=== PATIENT | male | born 1955 | race Caucasian/White ===

== ENCOUNTER 2020-06-11 10:13 | Outpatient (REF) | payer MEDICARE, MEDICAID, SELFPAY ==
--- NOTE | ~2020-06-11 | XR_ITS ---
EXAMINATION: XR RIGHT SHOULDER AND CERVICAL SPINE CLINICAL INFORMATION: Neck pain and right shoulder pain. COMPARISON: None. TECHNIQUE: 3 views right shoulder and 5 view cervical spine. FINDINGS: Right Shoulder: There is loss of glenohumeral joint space with moderate inferior glenohumeral joint periapical spurring. No loose body seen. There is decrease in AC joint space with no bony erosive changes. The soft tissues are normal. Cervical Spine: There is mild straightening of cervical lordosis. The vertebral heights and alignment is normal. There is loss of C4-C5, C5-C6 disc heights with ventral and posterior spondylosis. There is bilateral narrowing of the neural foramina at C5-C6 and C6-C7 disc levels on the right from uncovertebral hypertrophic changes. No lytic or sclerotic process seen. The prevertebral soft tissues are normal. XR/XR shoulder RT min 2V IMPRESSION: Degenerative changes with moderate inferior glenohumeral joint spurring. Disc changes C4-C5, C5-C6 disc levels with moderate ventral and posterior spondylosis. Narrowing of neural foramina as described above from uncovertebral hypertrophic changes.
--- NOTE | ~2020-06-11 | XR_ITS ---
EXAMINATION: XR RIGHT SHOULDER AND CERVICAL SPINE CLINICAL INFORMATION: Neck pain and right shoulder pain. COMPARISON: None. TECHNIQUE: 3 views right shoulder and 5 view cervical spine. FINDINGS: Right Shoulder: There is loss of glenohumeral joint space with moderate inferior glenohumeral joint periapical spurring. No loose body seen. There is decrease in AC joint space with no bony erosive changes. The soft tissues are normal. Cervical Spine: There is mild straightening of cervical lordosis. The vertebral heights and alignment is normal. There is loss of C4-C5, C5-C6 disc heights with ventral and posterior spondylosis. There is bilateral narrowing of the neural foramina at C5-C6 and C6-C7 disc levels on the right from uncovertebral hypertrophic changes. No lytic or sclerotic process seen. The prevertebral soft tissues are normal. XR/XR cervical spine 4V IMPRESSION: Degenerative changes with moderate inferior glenohumeral joint spurring. Disc changes C4-C5, C5-C6 disc levels with moderate ventral and posterior spondylosis. Narrowing of neural foramina as described above from uncovertebral hypertrophic changes.
== END 2020-06-11 10:14 | disposition home or self-care (01) ==
LOC: HO.HMGCX 10:13
PROVIDERS: PCP Nurse Practitioner; Visit Provider Nurse Practitioner
DX: M25.511 Pain in right shoulder (principal); M54.2 Cervicalgia
CPT/HCPCS: 72050; 73030

== ENCOUNTER 2021-04-30 12:40 | Outpatient (REF) | payer MEDICARE, MEDICAID, SELFPAY ==
--- NOTE | ~2021-04-30 | MR_ITS ---
EXAMINATION: MR SHOULDER WITHOUT CONTRAST, RIGHT CLINICAL INFORMATION: Chronic pain. Weakness. Arthritis. COMPARISON: None TECHNIQUE: MRI of the shoulder without contrast was performed on a high-field scanner. Examination is slightly limited by motion artifact on most sequences. FINDINGS: ROTATOR CUFF: Mild supraspinatus tendinosis with subtle undersurface fraying. No discrete supraspinatus tendon tear. There is a small 6 x 4 mm insertional partial tear of the subscapularis tendon at the lesser tuberosity with mild associated tendinosis. There is mild atrophy and grade 2 fatty replacement of the teres minor. Rotator cuff musculature is otherwise unremarkable. No abnormalities are identified in the axillary pouch. BICEPS: Normal. CORACOACROMIAL ARCH: The undersurface of the acromion is curved with no subacromial spur. Mild acromioclavicular osteoarthritis. No subacromial-subdeltoid bursitis. LABRUM/CAPSULE: The glenoid labrum is diffusely degenerated, more pronounced superiorly and posteriorly. Axillary pouch is unremarkable. GLENOHUMERAL JOINT/MARROW: Severe nonuniform articular cartilage loss is present at both the glenoid and humeral head, associated with articular sclerosis and remodeling, prominent marginal osteophytes, and subchondral edema. Cartilage loss and articular remodeling are more notable at the posterior aspect of the glenoid. Subcortical cystic changes present at the greater tuberosity posteriorly. Gzolg-rr-rqgyhhhw-sized joint effusion. MR/MR shoulder RT wo con IMPRESSION: 1. Severe glenohumeral osteoarthritis. 2. Small 6 x 4 mm insertional partial tear of the subscapularis tendon with mild associated tendinosis. Mild supraspinatus tendinosis. No additional rotator cuff tears. 3. Mild acromioclavicular osteoarthritis.
== END 2021-04-30 12:41 | disposition home or self-care (01) ==
LOC: HO.MRI 12:40
PROVIDERS: Visit Provider Nurse Practitioner Primary Care
DX: M25.511 Pain in right shoulder (principal)
CPT/HCPCS: 73221

== ENCOUNTER 2022-01-10 11:45 | Outpatient (REF) | payer MEDICARE, MEDICAID, SELFPAY ==
--- NOTE | 2022-01-10 15:03 | MHC.AU.ANO ---
Adult Audiological Evaluation Date of Visit: 01/10/22 Polysomnography Tech Used: Not Applicable Reason for Appointment: Audiologic evaluation due to history of hearing loss, right ear great than left since childhood following trauma to the right ear. Mkiey also reports he intermittently experiences an echo/hollow sensation of the right ear. Hearing Handicap Inventory: HHIE SCORE: 20 Based on HHIE score, patient has: Mild to moderate perceived hearing handicap Ear History: Bothersome Tinnitus/Ringing/Noises in Ears: Right Ear Ear used on the phone: Right Ear Blocked/Full Sensation in Ear(s): Right Ear History of occupational noise exposure?: Yes History: Yes Medical History: Medical History: High Blood Pressure, Stroke, Vascular Problems Medical History: High Cholesterol and mild cognitive impairment. Medication List: Tadalafil, Finastreride, Tamsulosin, Lisinopril, Atorvastatin, Amlodipine, Aspirin, Cyclobenzaprine, Folin Acid, Citalopram, Hydroxyzine, Bupropion Otoscopy: Right Ear: Small amount of non-occluding cerumen Left Ear: Unremarkable Tympanometry: Tympanometry performed due to: To assess integrity of the middle ear system Right Ear: Normal Middle Ear System (Type A) Left Ear: Normal Middle Ear System (Type A) Otoacoustic Emissions Frequency Range Used: 1.6-8 kHz Right Ear Results: Present 1600 and 2000 Hz. Absent 1724-4740 Hz Analysis: Present emissions suggest normal cochlear function Rules out peripheral hearing loss greater than a mild degree Reduced/Absent emissions suggest cochlear dysfunction Results are consistent with degree and configuration of hearing loss Left Ear Results: Present 5287-2800 Hz Absent 3087-2381 Hz Analysis: Present emissions suggest normal cochlear function Rules out peripheral hearing loss greater than a mild degree Reduced/Absent emissions suggest cochlear dysfunction Results are consistent with degree and configuration of hearing loss Hearing Evaluation: Transducer(s) Used: Insert Earphones Bone Conduction Method: Conventional Audiometry Stimuli Used: Pure Tones Right Ear: Description of Hearing: Normal hearing thresholds 250-2000 Hz, dropping to a severe high frequency sensorineural hearing loss Left Ear: Description of Hearing: Normal hearing thresholds 250-2000 Hz, dropping to a moderate high frequency sensorineural hearing loss Speech Recognition Threshold (SRT): Method Used: Monitored Live Voice Stimuli Used: Spondee Words Right Ear: 15 dB HL Left Ear: 15 dB HL Word Discrimination: Method: Recorded Lists Word Lists Used: NU-6 Right Ear: 100% at 60 dB HL Left Ear: 100% at 60 dB HL Interpretation of Results: Results indicate an asymmetric high frequency hearing loss, right ear greater than left. With this hearing loss, Mikey is able to hear because of the normal low frequencies, but has difficulty understanding speech, particularly when background noise is present or a person is talking from a distance. Recommendations: Referral to Ear, Nose, and Throat is recommended for further work-up of the asymmetric hearing loss. Trial with amplification is recommended. Medical clearance from a physician is required before fitting. If Mikey is interested in pursuing hearing aids, he may schedule a Hearing Aid Evaluation at this office if medically cleared by the ENT. Audiological re-evaluation in one year. Diagnosis: Primary Diagnosis: H90.3 Bilateral Sensorineural Hearing Loss Services Performed: Comprehensive Audiological Evaluation (CPT 10160) Diagnostic Otoacoustic Emissions (CPT 11130, 26+TC) Tympanometry (CPT 99463) Signature: Provider: Olga Lidia Landin, CCC-A
== END 2022-01-10 11:46 | disposition home or self-care (01) ==
LOC: HO.SH 11:45
PROVIDERS: Visit Provider Nurse Practitioner
DX: Z01.118 Encounter for examination of ears and hearing with other abnormal findings (principal); H90.3 Sensorineural hearing loss, bilateral
CPT/HCPCS: 92557; 92567; 92588

== ENCOUNTER 2023-01-13 14:21 | Outpatient (AMB) | payer MEDICARE, SELFPAY ==
--- NOTE | 2023-01-13 14:40 | A.OFFPC_ITS ---
Vital Signs 01/13/23 14:41 Height 5 ft 6.14 in Weight 159 lb 2 oz BMI 25.6 BP 118/62 Blood Pressure Location Lt brachial Position Sitting Pulse 82 Pulse Source Pulse Oximeter Pulse Oximetry (%) 98 Oxygen Delivery Method Room Air Intake Visit Reasons: New patient Intake Note: Patient is a new patient here to establish care. Transferring care from [facility]. Medical records have been requested today. Pt will need medication refills. Profile Grinder Technician Required: No Accompanied by: step daughter-Caitie Allergies Penicillins Allergy (Severe, Verified 01/13/23 15:15) Hives Medication List - Last Reconciled 01/13/23 by Santy Fernandez PA-C amlodipine 2.5 mg PO DAILY atorvastatin 80 mg PO DAILY bupropion HCl 300 mg PO DAILY citalopram 40 mg PO DAILY cyclobenzaprine 10 mg PO TID PRN finasteride 5 mg PO DAILY folic acid 1 mg PO QAM hydroxyzine HCl 25 mg PO TID PRN lisinopril 10 mg PO DAILY tamsulosin 0.4 mg PO DAILY Tobacco use date assessed: 01/13/23 Fall risk assessment: 1 Fall in past year Last assessed Fall Risk: 01/13/23 Dental Screening Dental Screen Date: 01/13/23 Did you have a dental visit in the last 12 months?: No Did you have a dental problem in the last 6 months where you did not have access to dental care?: No Was dental information given to patient?: Yes HPI New patient HPI Details Patient is a 67-year-old male here today for new patient visit. Previous PCP was at the [facility]. Patient has a past medical history significant for hyperlipidemia, hypertension, anxiety depression, BPH, CVA ( 2012), PAD. Concern--> reports having history of a testicular cystic mass that was removed by urologist many years ago. He reports the mass has reoccurred and would like to see urologist again here in [place]. .. CVA: Had a stroke in 2012, has been on high potency statin and aspirin since. Has neurology follow-up with this time. Does not have any more in deficits besides his memory issues. .. Hypertension: Patient's blood pressure acceptable today in office. Continues on amlodipine 2.5 mg and lisinopril 10 mg which has been effective for his blood pressure management. .. Alcohol use disorder: He does understand somewhat that he drinks excessively. He has report having 5-6 beers per day. .. Anxiety/ anger issue: He continues with use of bupropion and citalopram and as needed hydroxyzine for anxiety and agitation. Does not speak with a mental health therapist or psychiatrist at this time. . .. PAD: followed by vascular speacialist [facility] for carotid stenosis. .. colon cancer screening : Was recently doing a Cologuard, will await records [facility] Medical History Muscle spasm Social History (Updated 01/13/23 @ 15:33 by Santy Fernandez PA-C) Housing: House Alcohol intake: current Alcohol intake frequency: 3 or more drinks per day Alcohol type: beer Patient Tobacco Use Status: Former Tobacco user Quit Date: 2012 Tobacco use type: Cigarette e-Cigarette/Vaping Use: Currently Using Substance Use Type: Marijuana service: No Current occupational status: retired and disabled Cognitive needs: No Hearing needs: Yes (right ear issue. Pt saw hearing evaluation already. ) Vision needs: No Questionnaire PHQ-9 Over the last 2 weeks, how often have you been bothered by any of the following problems? 1. Little interest or pleasure in doing things: more than half the days 2. Feeling down, depressed, or hopeless: nearly every day 3. Trouble falling or staying asleep, or sleeping too much: nearly every day 4. Feeling tired or having little energy: nearly every day 5. Poor appetite or overeating: nearly every day 6. Feeling bad about yourself - or that you are a failure or have let yourself or your family down: nearly every day 7. Trouble concentrating on things, such as reading the newspaper or watching television: nearly every day 8. Moving or speaking so slowly that other people could have noticed. Or the opposite - being so fidgety or restless that you have been moving around a lot more than usual: nearly every day 9. Thoughts that you would be better off or of hurting yourself in some way: nearly every day Total score: 26 Depression Screening Interpretation: Positive 67087 - PHQ-9 Billing: Yes Source: Developed by Drs. Devin Shah, Daquan Zamora and colleagues, with an educational sander from [employer]. Thrive Questionnaire Date Thrive assessed: 01/13/23 I am a: Patient What is your living situation today?: I have a steady place to live Within the past 12 months, did the food you bought not last and you didn't have the money to get more?: Never true Within the past 12 months, did you worry whether your food would run out before you got money to buy more?: Never true Do you have trouble paying for medicines?: No Do you have trouble getting transportation to medical appointments?: No Do you have trouble paying your heating and electricity bill?: No Do you have trouble taking care of your child, family member or friend?: No Do you have trouble with day-to-day activities such as bathing, preparing meals, shopping, managing finances, etc.?: No Are you currently unemployed and looking for a job?: No Are you interested in more education?: No Please select the resources that you would like help with: None Currently or been in a relationship where the following occur: no concerns reported AUDIT C Alcohol Use Questionnaire (AUDIT-C) 1. How often do you have a drink containing alcohol?: 4 or more times a week 2. How many drinks containing alcohol do you have on a typical day when you are drinking?: 5 or 6 3. How often do you have six or more drinks on one occasion?: Daily or almost daily Total Score: 10 SANGITA-7 AMB Questionnaire SANGITA-7 Date SANGITA - 7 assessed: 01/13/23 Feeling nervous, anxious, or on edge: 3 = Nearly every day Not being able to stop or control worryin = Nearly every day Worrying too much about different things: 3 = Nearly every day Trouble relaxin = Nearly every day Being so restless that it is hard to sit still: 3 = Nearly every day Becoming easily annoyed or irritable: 3 = Nearly every day Feeling afraid as if something awful might happen: 3 = Nearly every day Total SANGITA-7 score (0-4 normal; 5-9 mild; 10-14 moderate; 15-21 severe): 21 Source: Developed by Drs. Devin Shah, Daquan Zamora and colleagues, with an educational sander from [employer]. SANGITA-7 Assessment Billing SANGITA-7 Assessment Tool: SANGITA-7 Assessment 15730 Review of Systems Const Denies headache(s) Eyes Denies loss of vision ENT Denies vertigo, Denies dizziness, Denies headache(s) and Denies sore throat Card Denies chest pain, Denies leg edema and Denies lightheadedness Resp Denies cough, Denies hemoptysis and Denies wheezing GI Denies abdominal pain, Denies melena, Denies constipation, Denies diarrhea and Denies vomiting Denies dysuria, Denies urinary frequency and Denies urinary urgency Musc Denies arthralgias, Denies joint swelling, Denies numbness and Denies tingling Neuro Denies Abnormal speech present, Denies behavioral changes, Denies vertigo, Denies dizziness, Denies headache(s), Denies loss of vision, Denies memory loss, Denies numbness and Denies tingling Psych Denies anxiety, Denies behavioral changes, Denies depression, Denies memory loss and Denies panic attacks Guille/Lymph Denies easy bleeding and Denies easy bruising Aller/Immun Denies wheezing Physical exam (Primary Care) Vital Signs: Last Vital Signs Pulse 82 01/13/23 14:41 BP 118/62 01/13/23 14:41 Pulse Ox 98 01/13/23 14:41 Oxygen Delivery Method Room Air 01/13/23 14:41 BMI result Body Mass Index 25.6 Tobacco/Smoking Status: Tobacco use Status Tobacco use date assessed 01/13/23 01/13/23 15:00 Patient Tobacco Use Status Former Tobacco user 01/13/23 15:33 Tobacco use type Cigarette 01/13/23 15:33 e-Cigarette/Vaping Use Currently Using 01/13/23 15:33 PHQ-9: PHQ-9 Score PHQ-9: Total score 26 01/14/23 07:26 Depression Screening Interpretation: Positive Thrive Assessment: Date of Thrive Assessment Date Thrive assessed 01/13/23 01/13/23 15:00 Currently or been in a relationship where the following occur: no concerns reported Const General: healthy appearing, no acute distress, alert and awake Nutritional Appearance: well nourished Orientation/consciousness: oriented to person, oriented to place and oriented to time HENMT Ears: TM's normal bilaterally General nose exam: Normal nasal mucous membranes and turbinates present Eyes Conjunctivae: conjunctivae normal Sclerae: sclerae normal Pupils: Equal, round and reactive pupils present Neck Neck: Yes no lymphadenopathy and Yes no JVD Thyroid: Thyroid normal Carotids: no bruits Resp Effort & Inspection: normal respiratory effort and not tachypneic Auscultation: no crackles, no rales, no rhonchi and no wheezes Cardio Rate: regular rate Rhythm: regular rhythm Heart sounds: no murmurs and normal S1 and S2 GI Palpation (GI): Soft to palpation, nontender, no hepatomegaly and no splenomegaly Auscultation: normal bowel sounds Skin General skin exam: no rashes or lesions noted and dry skin Neuro General: oriented to person, oriented to place and oriented to time Cranial nerves: Yes Equal, round and reactive pupils present Speech: No Abnormal speech present Gait exam (Neuro): Normal gait present Motor exam (neuro): no tremor noted Extrem Other: RIGHT SHOULDER: SOME DECREASED ACTIVE RANGE OF MOTION. UNABLE TO COMPLETELY RAISE RIGHT UPPER EXTREMITY ABOVE HEAD. Left upper extremity: full ROM Right lower extremity: full ROM; no edema Left lower extremity: full ROM; no edema Psych Mental Status: mental status grossly normal Speech and movement: Normal speech and movement present Affect: normal affect Attitude: cooperative Thought process: Normal thought process present Assessment and Plan Assessment & Plan (1) CVA (cerebral vascular accident): Comment: Stroke in 2013 Code(s): I63.9 - Cerebral infarction, unspecified Qualifiers: CVA mechanism: embolism Precerebral and cerebral artery: unspecified precerebral artery Qualified Code(s): I63.10 - Cerebral infarction due to embolism of unspecified precerebral artery Plan: Continue to reduce risk factors for recurrent stroke. Advised on continuing 81 mg aspirin. (2) HTN (hypertension): Code(s): I10 - Essential (primary) hypertension Qualifiers: Hypertension type: primary hypertension Qualified Code(s): I10 - Essential (primary) hypertension Plan: Blood pressure today acceptable. Will continue his antihypertensive medication with goal blood pressure to remain below 140/90 (3) BPH (benign prostatic hyperplasia): Code(s): N40.0 - Benign prostatic hyperplasia without lower urinary tract symptoms Qualifiers: Lower urinary tract symptom presence: symptoms absent Qualified Code(s) : N40.0 - Benign prostatic hyperplasia without lower urinary tract symptoms (4) Testicular cyst: Code(s): N44.2 - Benign cyst of testis Plan: Has had history of a testicular mass that was removed by urologist years ago. He would like to reestablish care here at [place] [facility] has he reports this testicular mass has reoccurred. (5) Right shoulder tendonitis: Code(s): M77.8 - Other enthesopathies, not elsewhere classified Plan: In 2020 patient did suffer a fall injuring his right shoulder. At the time MRI was done showing a partial tear of his supraspinatus tendon. He continues to have pain and does use gsny-idv-[id number] analgesics and cyclobenzaprine without much relief. Offered physical therapy and orthopedic referral for possible cortisone injection though patient would like to hold off on now. (6) Alcohol use disorder: Code(s): F10.90 - Alcohol use, unspecified, uncomplicated Plan: Unclear patient understands the amount beer he drinks per day is a bit excessive. Advised to cut down his drinking. Does report 5-6 beers per day. Will check his liver enzymes. (7) Right SNHL: Code(s): H90.5 - Unspecified sensorineural hearing loss Qualifiers: Contralateral hearing status: restricted hearing on contralateral side Qualified Code(s): H90.A21 - Sensorineural hearing loss, unilateral, right ear, with restricted hearing on the contralateral side Plan: Does report having right ear decreased hearing, was sent for audiological testing in January 2022 which did show decreased right sided sensor in her hearing loss. Patient was in the and did have exposure to loud noises Will refer to ENT for evaluation. (8) SANGITA (generalized anxiety disorder): Code(s): F41.1 - Generalized anxiety disorder Plan: Continues with mental health medications which have been helpful to reduce his anxiety. Orders: Orders Microalbumin, Random (w Creat) 01/13/23 I10 - Essential (primary) hypertension Comprehensive Termo. Panel Fast 01/13/23 I63.10 - Cerebral infarction due to embolism of unspecified precerebral artery Lipid Panel 01/13/23 I63.10 - Cerebral infarction due to embolism of unspecified precerebral artery Prostate Specific Antigen Scr 01/13/23 I63.10 - Cerebral infarction due to embolism of unspecified precerebral artery, Z12.5 - Encounter for screening for malignant neoplasm of prostate Referrals Urology Referral N44.2 - Benign cyst of testis Ear/Nose/Throat Referral H90.A21 - Sensorineural hearing loss, unilateral, right ear, with restricted hearing on the contralateral side Medications: New lisinopril 10 mg PO DAILY 90 days 90 tabs 1RF I10 - Essential (primary) hypertension bupropion HCl 300 mg PO DAILY 90 days 90 tabs 1RF F41.1 - Generalized anxiety disorder tamsulosin 0.4 mg PO DAILY 90 days 90 caps 1RF N40.0 - Benign prostatic hyperplasia without lower urinary tract symptoms folic acid 1 mg PO QAM 90 days 90 tabs 1RF I63.10 - Cerebral infarction due to embolism of unspecified precerebral artery amlodipine 2.5 mg PO DAILY 90 days 90 tabs 1RF I10 - Essential (primary) hypertension atorvastatin 80 mg PO DAILY 90 days 90 tabs 1RF I63.10 - Cerebral infarction due to embolism of unspecified precerebral artery citalopram 40 mg PO DAILY 90 days 90 tabs 1RF F41.1 - Generalized anxiety disorder finasteride 5 mg PO DAILY 90 days 90 tabs 1RF N40.0 - Benign prostatic hyperplasia without lower urinary tract symptoms aspirin (Adult Aspirin Regimen) 81 mg PO DAILY 90 days 90 tabs 1RF I63.10 - Cerebral infarction due to embolism of unspecified precerebral artery Coding Level of Care Code New Pt Level 4 (58190) Diagnoses Cerebrovascular accident (CVA) due to embolism of precerebral artery I63.10 CVA mechanism: embolism Precerebral and cerebral artery: unspecified precerebral artery Primary hypertension I10 Hypertension type: primary hypertension Benign prostatic hyperplasia without lower urinary tract symptoms N40.0 Lower urinary tract symptom presence: symptoms absent Testicular cyst N44.2 Right shoulder tendonitis M77.8 Alcohol use disorder F10.90 Sensorineural hearing loss (SNHL) of right ear with restricted hearing of left ear H90.A21 Contralateral hearing status: restricted hearing on contralateral side SANGITA (generalized anxiety disorder) F41.1 Additional Codes SANGITA-7 Assessment Billing - SANGITA-7 Assessment Tool: SANGITA-7 Assessment 68413 ([id number])
[2023-01-13 14:41] VITALS: BP 118/62; PULSE 82; O2SAT 98; BMI 25.6
== END 2023-01-13 15:51 | disposition home or self-care (01) ==
PROVIDERS: Visit Provider Physician Assistant
DX: I63.10 Cerebral infarction due to embolism of unspecified precerebral artery (principal); I10 Essential (primary) hypertension; N40.0 Benign prostatic hyperplasia without lower urinary tract symptoms; N44.2 Benign cyst of testis; M77.8 Other enthesopathies, not elsewhere classified; F10.90 Alcohol use, unspecified, uncomplicated; H90.A21 Sensorineural hearing loss, unilateral, right ear, with restricted hearing on the contralateral side; F41.1 Generalized anxiety disorder
CPT/HCPCS: 99204

== ENCOUNTER 2023-02-02 09:58 | Outpatient (REF) | payer MEDICARE, SELFPAY ==
[2023-02-02 13:56] LABS: Alanine Aminotransferase 14 U/L (0-40); Albumin Level 4.2 g/dL (3.5-5.0); Alkaline Phosphatase 48 U/L (39-117); Anion Gap 15 (12-20); Aspartate Amino Transferase 18 U/L (5-37); Bilirubin Total 0.7 mg/dL (0.0-1.0); Blood Urea Nitrogen 17 mg/dL (9-16); Calcium 9.8 mg/dL (8.4-10.2); Carbon Dioxide 26 mmol/L (22-29); Chloride 106 mmol/L (96-108); Cholesterol 175 mg/dL (<200); Estimated Glomerular Filt Rate 53; Glucose Fasting 93 mg/dL (60-99); HDL Cholesterol 60 mg/dL (>40); LDL Cholesterol Calculated 103 mg/dL (<100); Potassium 4.8 mmol/L (3.3-5.1); Sodium 142 mmol/L (135-145); Total Protein 6.9 g/dL (6.5-8.0); Triglycerides 62 mg/dL (<150)
[2023-02-02 14:13] LABS: Prostate Specific Antigen Scr 0.46 ng/mL (<0.05-4.0)
[2023-02-02 14:17] LABS: Creatinine Urine 216.37 mg/dL; Microalbum/Creatinine Ratio Ur 3.6 ug/mg cr (<30)
== END 2023-02-02 09:59 | disposition home or self-care (01) ==
LOC: HO.HMGCLDS 09:58
PROVIDERS: PCP Physician Assistant; Visit Provider Physician Assistant
DX: I63.10 Cerebral infarction due to embolism of unspecified precerebral artery (principal); I10 Essential (primary) hypertension; Z12.5 Encounter for screening for malignant neoplasm of prostate
CPT/HCPCS: 36415; 80053; 80061; 82043; 82570; 84153

== ENCOUNTER 2023-03-25 14:17 | Outpatient (AMB) | payer MEDICARE, SELFPAY ==
--- NOTE | 2023-03-25 14:56 | MHC.OFFVIS ---
Intake Intake Visit Reasons: Benign cyst of testis Intake Note: New patient is present for Begign Cyst of Testis/BPH Antibiotic Allergy: Penicillins Meds: Finasteride, Tamsulosin Blood Thinner: Aspirin PVR: 0ml history of a testicular cystic mass that was removed by urologist many years ago. Patient is concerned that its back. Allergies Penicillins Allergy (Severe, Verified 03/25/23 14:58) Hives HPI HPI Comments History of Present Illness Details Mikey is a 67-year-old male who presents today to the office to establish as a new patient for an evaluation of BPH/benign cyst of testis. 03/25/2023-- 67-year-old with a past medical history significant for nicotine dependence, ethanol abuse, anxiety and history of stroke in 2013. He has been followed by other urology for BPH and he is on Proscar and Flomax. He states that he had a benign scrotal cyst removed many years ago by his previous urologist, and he feels that there is a recurrent and he is concerned about the cystic area. AUA symptom score was 11. I have reviewed the PSA results from 02/02/2023 revealed 0.46 ng/mL. Examination: Small cyst noted on left epididymis and also palpating what may be cystic structures on the right epididymis. Evaluation today?UA--Leukocytes: negative; blood: trace. Plan: US retroperitoneal was ordered. Scrotal US was ordered. Follow-up in 2 months. [facility] Medical History Muscle spasm Social History Housing: House Alcohol intake: current Alcohol intake frequency: 3 or more drinks per day Alcohol type: beer Patient Tobacco Use Status: Former Tobacco user Quit Date: 2012 Tobacco use type: Cigarette e-Cigarette/Vaping Use: Currently Using Substance Use Type: Marijuana service: No Current occupational status: retired and disabled Cognitive needs: No Hearing needs: Yes (right ear issue. Pt saw hearing evaluation already. ) Vision needs: No Questionnaire AUA Symptom Score AUA Incomplete emptying - It does not feel like I empty my bladder all the way.: 0 - Not at all Frequency - I have to go again less than two hours after I finish urinating.: 3 - About half the time Intermittency - I stop and start again several times when I urinate.: 0 - Not at all Urgency - It is hard to wait when I have to urinate.: 3 - About half the time Weak stream - I have a weak urinary stream.: 2 - Less than half the time Straining - I have to push or strain to begin urination.: 0 - Not at all Nocturia - I get up to urinate after I go to bed until the time I get up in the morning.: 3 times AUA Symptom Score: 11 Quality of life due to urinary symptoms: If you were to spend the rest of your life with your urinary condition the way it is now, how would you feel about that?: Mostly Satisfied Source: Erik BOWIE, Anjana MADERA Jr, O'Raymond MP, et al, and the Measurement Committee of the [place] [employer]. The [place] [employer] symptom index for benign prostatic hyperplasia. J Urol. 1992; 148: 8565-5271. Copyright 1992 [place] [employer] Review of Systems Const All systems reviewed & are unremarkable except as noted in HPI and below Reports no additional complaints Eyes Reports no additional complaints ENT Reports no additional complaints Card Denies dyspnea Resp Denies cough and Denies dyspnea GI Reports no additional complaints Musc Reports no additional complaints Skin/Breast Denies rash and Denies unusual bruising Neuro Reports no additional complaints Psych Reports no additional complaints Endo Reports no additional complaints Guille/Lymph Reports no additional complaints Aller/Immun Reports no additional complaints Physical Exam Const General: healthy appearing, no acute distress and well developed Orientation/consciousness: patient oriented x3 HEENT Head: Yes normocephalic and Yes atraumatic Eyes Conjunctivae: conjunctivae normal Neck Neck: Yes normal visual inspection Chest Chest palpation & inspection: normal inspection of the chest Resp Effort & Inspection: normal respiratory effort Cardio Rate: regular rate GI Inspection: Yes normal to inspection Palpation (GI): Soft to palpation Other: Examination: Small cyst noted on left epididymis and also palpating what may be cystic structures on the right epididymis. Penis: normal penis Skin General skin exam: no rashes or lesions noted Neuro General: patient oriented x3 Extrem General: No pedal edema Psych Appearance: grossly normal Affect: normal affect Office Procedures Post Void Residual Post Residual Void Post Void Residual (PVR): 0 62113-[id number] Void Residual by ultrasound Results AMB Urinalysis, Automated UA Leukoctes 0 Juancarlos/uL Last Edit by Swapna Melgoza, RMA on 03/25/23 15:11 UA Nitrite Negative Last Edit by Swapna Melgoza, RMA on 03/25/23 15:11 UA Urobilinogen 0.2 mg/dL Last Edit by Swapna Melgoza, RMA on 03/25/23 15:11 UA Protein 0 mg/dL Last Edit by Swapna Melgoza, RMA on 03/25/23 15:11 UA pH 6.0 Last Edit by Swapna Melgoza, RMA on 03/25/23 15:11 UA Blood 0 Grady/uL Last Edit by Sawpna Melgoza, RMA on 03/25/23 15:11 UA Specific [place] 1.020 Last Edit by Swapna Melgoza, RMA on 03/25/23 15:11 UA Ketone Negative Last Edit by Swapna Melgoza, RMA on 03/25/23 15:11 UA Bilirubin 0 mg/dL Last Edit by Swapna Melgoza, RMA on 03/25/23 15:11 UA Glucose 0 mg/dL Last Edit by Swapna Melgoza, RMA on 03/25/23 15:11 Results Reviewed Results Reviewed: Laboratory Last Values Urine pH (Auto) 6.0 03/25/23 15:09 Specific [place] (Auto) 1.020 03/25/23 15:09 Urine Protein (Auto) 0 mg/dL 03/25/23 15:09 Glucose (UA)(Auto) 0 mg/dL 03/25/23 15:09 Urine Ketones (Auto) Negative 03/25/23 15:09 Urine Blood (Auto) 0 Grady/uL 03/25/23 15:09 Urine Nitrite (Auto) Negative 03/25/23 15:09 Urine Bilirubin (Auto) 0 mg/dL 03/25/23 15:09 Urine Urobilinogen (Auto) 0.2 mg/dL 03/25/23 15:09 Leukocyte Esterase (Auto) 0 Juancarlos/uL 03/25/23 15:09 Assessment & Plan Assessment & Plan (1) BPH (benign prostatic hyperplasia): Code(s): N40.0 - Benign prostatic hyperplasia without lower urinary tract symptoms Qualifiers: Lower urinary tract symptom presence: symptoms absent Qualified Code(s): N40.0 - Benign prostatic hyperplasia without lower urinary tract symptoms (2) Urinary frequency: Code(s): R35.0 - Frequency of micturition (3) Epididymal cyst: Code(s): N50.3 - Cyst of epididymis Plan US retroperitoneal was ordered. Scrotal US was ordered. Follow-up in 2 months. Orders: Orders AMB Post Void Residual by ultrasound 03/25/23 N40.0 - Benign prostatic hyperplasia without lower urinary tract symptoms AMB Urinalysis Automated 03/25/23 Z13.9 - Encounter for screening, unspecified US retroperitoneal comp 03/25/23 N40.0 - Benign prostatic hyperplasia without lower urinary tract symptoms, R35.0 - Frequency of micturition US scrotum 03/25/23 N50.3 - Cyst of epididymis Patient Instructions: The patient had an opportunity to ask questions regarding treatment plan. All questions were answered. Imaging, Laboratory studies and physical exam results were discussed and reviewed in detail. No major barriers to understanding were identified. The patient expressed understanding and agreement with the above treatment plan. The patient is aware they should contact our office by phone for worsening of their current condition or the appearance of new symptoms. Compliance is encouraged with any medications and followup testing that is ordered. It is a privilege to be allowed the opportunity to participate in the urologic care of your patient. If you have any questions or concerns regarding treatment for the above conditions please do not hesitate to contact me. The office telephone contact is [phone]. This note is constructed in part using voice recognition software. While every effort has been made to ensure accuracy firebrick and refractory tile repairer errors may have been included. Yours sincerely, Fidencio Goodman MD Quality Reporting (2019) Benign Prostatic Hyperplasia ([facility] 771) AUA symptom score: 11 Quality of life due to urinary symptoms: If you were to spend the rest of your life with your urinary condition the way it is now, how would you feel about that?: Mostly Satisfied Coding Level of Care Code New Pt Level 4 (90702) Diagnoses Benign prostatic hyperplasia without lower urinary tract symptoms N40.0 Lower urinary tract symptom presence: symptoms absent Urinary frequency R35.0 Epididymal cyst N50.3 CPT Codes Post Residual Void - PVR CPT Code: 61145-Yvuj Void Residual by ultrasound ([id number])
== END 2023-03-25 15:31 | disposition home or self-care (01) ==
PROVIDERS: Visit Provider Urology
DX: N40.0 Benign prostatic hyperplasia without lower urinary tract symptoms (principal); R35.0 Frequency of micturition; N50.3 Cyst of epididymis
CPT/HCPCS: 99204

== ENCOUNTER → 2023-03-25 14:17 | Outpatient (BNVA) | payer OTHER, SELFPAY | PROVIDERS: Visit Provider Urology | DX: N40.0 Benign prostatic hyperplasia without lower urinary tract symptoms (principal); R35.0 Frequency of micturition; N50.3 Cyst of epididymis | CPT/HCPCS: 51798; 81003; 99202 ==

== ENCOUNTER 2023-05-18 14:26 | Outpatient (AMB) | payer MEDICARE, MEDICAID, SELFPAY ==
[2023-05-18 14:38] VITALS: BP 110/68; PULSE 70; O2SAT 97; BMI 25.6
--- NOTE | 2023-05-18 14:38 | A.OFFPC_ITS ---
Vital Signs 05/18/23 14:38 Height 5 ft 6.14 in Weight 159 lb 2 oz BMI 25.6 BP 110/68 Blood Pressure Location Lt brachial Position Sitting Pulse 70 Pulse Source Pulse Oximeter Pulse Oximetry (%) 97 Oxygen Delivery Method Room Air Intake Visit Reasons: Follow Up hypertension, CVA Brass Burnisher Required: No Accompanied by: Self / Same As Patient Allergies Penicillins Allergy (Severe, Verified 05/18/23 14:51) Hives Medication List - Last Reconciled 05/18/23 by Santy Fernandez PA-C amlodipine 2.5 mg PO DAILY 90 days aspirin (Adult Aspirin Regimen) 81 mg PO DAILY 90 days atorvastatin 80 mg PO DAILY 90 days bupropion HCl 300 mg PO DAILY 90 days citalopram 40 mg PO DAILY 90 days cyclobenzaprine 10 mg PO TID PRN finasteride 5 mg PO DAILY 90 days folic acid 1 mg PO QAM 90 days hydroxyzine HCl 25 mg PO TID PRN lisinopril 10 mg PO DAILY 90 days tamsulosin 0.4 mg PO DAILY 90 days Tobacco use date assessed: 05/18/23 Fall risk assessment: No Falls in past year Last assessed Fall Risk: 05/18/23 Dental Screening Dental Screen Date: 05/18/23 Did you have a dental visit in the last 12 months?: No Did you have a dental problem in the last 6 months where you did not have access to dental care?: No Was dental information given to patient?: Patient declined HPI Follow Up hypertension, CVA HPI Details Patient is a 67-year-old male here today for a follow-up visit. Patient has a past medical history significant for hyperlipidemia, hypertension, anxiety depression, BPH, CVA ( 2012), PAD. Concern--> continues to have right shoulder pain and limited range of motion. He reports a traumatic fall in 2020 landing on his right shoulder. He did do chiropractics and physical therapy at that time. MRI of right shoulder in 2020 showing--> . Severe glenohumeral osteoarthritis. 2. Small 6 x 4 mm insertional partial tear of the subscapularis tendon with mild associated tendinosis. Mild supraspinatus tendinosis. No additional rotator cuff tears. .. CVA: Had a stroke in 2012, has been on high potency statin and aspirin since. Has neurology follow-up with this time. Does not have any more in deficits besides his memory issues. .. Hypertension: Patient's blood pressure acceptable today in office. Continues on amlodipine 2.5 mg and lisinopril 10 mg which has been effective for his blood pressure management. .. Alcohol use disorder: He does understand somewhat that he drinks excessively. He has report having 5-6 beers per day. .. Anxiety/ anger issue: He continues with use of bupropion and citalopram and as needed hydroxyzine for anxiety and agitation. Does not speak with a mental health therapist or psychiatrist at this time. . .. PAD: followed by vascular speacialist [facility] for carotid stenosis. Laboratory Tests 02/02/23 10:08 Creatinine 1.36 Cholesterol 175 LDL Cholesterol, C alc 103 H [facility] Medical History Muscle spasm Social History Housing: House Alcohol intake: current Alcohol intake frequency: 3 or more drinks per day Alcohol type: beer Patient Tobacco Use Status: Former Tobacco user Quit Date: 2012 Tobacco use type: Cigarette e-Cigarette/Vaping Use: Currently Using Substance Use Type: Marijuana service: No Current occupational status: retired and disabled Cognitive needs: No Hearing needs: Yes (right ear issue. Pt saw hearing evaluation already. ) Vision needs: No Questionnaire PHQ-9 Over the last 2 weeks, how often have you been bothered by any of the following problems? 1. Little interest or pleasure in doing things: not at all 2. Feeling down, depressed, or hopeless: nearly every day 3. Trouble falling or staying asleep, or sleeping too much: nearly every day 4. Feeling tired or having little energy: nearly every day 5. Poor appetite or overeating: nearly every day 6. Feeling bad about yourself - or that you are a failure or have let yourself or your family down: nearly every day 7. Trouble concentrating on things, such as reading the newspaper or watching television: nearly every day 8. Moving or speaking so slowly that other people could have noticed. Or the opposite - being so fidgety or restless that you have been moving around a lot more than usual: nearly every day 9. Thoughts that you would be better off or of hurting yourself in some way: not at all Total score: 21 Depression Screening Interpretation: Positive Depression Screening Follow-up: Existing condition and Declines treatment Depression Screening Done: Yes 83664 - PHQ-9 Billing: Yes Source: Developed by Drs. Devin Shah, Katherin Goldman, Daquan Beyer and colleagues, with an educational sander from [employer]. Thrive Questionnaire Date Thrive assessed: 05/18/23 I am a: Patient What is your living situation today?: I have a steady place to live Within the past 12 months, did the food you bought not last and you didn't have the money to get more?: Never true Within the past 12 months, did you worry whether your food would run out before you got money to buy more?: Never true Do you have trouble paying for medicines?: No Do you have trouble getting transportation to medical appointments?: No Do you have trouble paying your heating and electricity bill?: No Do you have trouble taking care of your child, family member or friend?: No Do you have trouble with day-to-day activities such as bathing, preparing meals, shopping, managing finances, etc.?: No Are you currently unemployed and looking for a job?: No Are you interested in more education?: No Please select the resources that you would like help with: None AUDIT C Alcohol Use Questionnaire (AUDIT-C) 1. How often do you have a drink containing alcohol?: 4 or more times a week 2. How many drinks containing alcohol do you have on a typical day when you are drinking?: 10 or more 3. How often do you have six or more drinks on one occasion?: Daily or almost daily Total Score: 12 SANGITA-7 AMB Questionnaire SANGITA-7 Date SANGITA - 7 assessed: 05/18/23 Feeling nervous, anxious, or on edge: 3 = Nearly every day Not being able to stop or control worryin = Nearly every day Worrying too much about different things: 3 = Nearly every day Trouble relaxin = Nearly every day Being so restless that it is hard to sit still: 3 = Nearly every day Becoming easily annoyed or irritable: 3 = Nearly every day Feeling afraid as if something awful might happen: 3 = Nearly every day Total SANGITA-7 score (0-4 normal; 5-9 mild; 10-14 moderate; 15-21 severe): 21 Source: Developed by Drs. Devin Shah, Katherin Goldman, Daquan Beyer and colleagues, with an educational sander from [employer]. SANGITA-7 Assessment Billing SANGITA-7 Assessment Tool: SANGITA-7 Assessment 73226 Review of Systems Const Denies headache(s) Eyes Denies loss of vision ENT Denies vertigo, Denies dizziness, Denies headache(s) and Denies sore throat Card Denies chest pain, Denies leg edema and Denies lightheadedness Resp Denies cough, Denies hemoptysis and Denies wheezing GI Denies abdominal pain, Denies melena, Denies constipation, Denies diarrhea and Denies vomiting Denies dysuria, Denies urinary frequency and Denies urinary urgency Musc Denies arthralgias, Denies joint swelling, Denies numbness and Denies tingling Neuro Denies Abnormal speech present, Denies behavioral changes, Denies vertigo, Denies dizziness, Denies headache(s), Denies loss of vision, Denies memory loss, Denies numbness and Denies tingling Psych Denies anxiety, Denies behavioral changes, Denies depression, Denies memory loss and Denies panic attacks Guille/Lymph Denies easy bleeding and Denies easy bruising Aller/Immun Denies wheezing Physical exam (Primary Care) Vital Signs: Last Vital Signs Pulse 70 05/18/23 14:38 BP 110/68 05/18/23 14:38 Pulse Ox 97 05/18/23 14:38 Oxygen Delivery Method Room Air 05/18/23 14:38 BMI result Body Mass Index 25.6 Tobacco/Smoking Status: Tobacco use Status Tobacco use date assessed 05/18/23 05/18/23 14:48 Patient Tobacco Use Status Former Tobacco user 05/18/23 14:39 Tobacco use type Cigarette 05/18/23 14:39 e-Cigarette/Vaping Use Currently Using 05/18/23 14:39 PHQ-9: PHQ-9 Score PHQ-9: Total score 21 05/18/23 14:53 Depression Screening Interpretation: Positive Depression Screening Follow-up: Existing condition and Declines treatment Thrive Assessment: Date of Thrive Assessment Date Thrive assessed 01/15/24 01/15/24 14:48 Const General: healthy appearing, no acute distress, alert and awake Nutritional Appearance: well nourished Orientation/consciousness: oriented to person, oriented to place and oriented to time HENMT Ears: TM's normal bilaterally General nose exam: Normal nasal mucous membranes and turbinates present Eyes Conjunctivae: conjunctivae normal Sclerae: sclerae normal Pupils: Equal, round and reactive pupils present Neck Neck: Yes no lymphadenopathy and Yes no JVD Thyroid: Thyroid normal Carotids: no bruits Resp Effort & Inspection: normal respiratory effort and not tachypneic Auscultation: no crackles, no rales, no rhonchi and no wheezes Cardio Rate: regular rate Rhythm: regular rhythm Heart sounds: no murmurs and normal S1 and S2 GI Palpation (GI): Soft to palpation, nontender, no hepatomegaly and no splenomegaly Auscultation: normal bowel sounds Skin General skin exam: no rashes or lesions noted and dry skin Neuro General: oriented to person, oriented to place and oriented to time Cranial nerves: Yes Equal, round and reactive pupils present Speech: No Abnormal speech present Gait exam (Neuro): Normal gait present Motor exam (neuro): no tremor noted Extrem Other: RIGHT SHOULDER: NEGATIVE EMPTY CAN, NEGATIVE MORA TEST. HAS SOME LIMITED ABDUCTION AND INTERNAL ROTATIONAL RANGE OF MOTION Right upper extremity: full ROM Left upper extremity: full ROM Right lower extremity: full ROM; no edema Left lower extremity: full ROM; no edema Psych Mental Status: mental status grossly normal Speech and movement: Normal speech and movement present Affect: normal affect Attitude: cooperative Thought process: Normal thought process present Assessment and Plan Assessment & Plan (1) Right rotator cuff tear: Code(s): M75.101 - Unspecified rotator cuff tear or rupture of right shoulder, not specified as traumatic Qualifiers: Encounter type: subsequent encounter Rotator cuff tear extent: incomplete Rotator cuff tear trauma status: traumatic Qualified Code(s): S46.011D - Strain of muscle(s) and tendon(s) of the rotator cuff of right shoulder, subsequent encounter Plan: As per HPI, did a fall injuring his right shoulder in 2020. Has ever since had limited range of motion and intermittent pain with activity. MRI of right shoulder in 2020 showing-->. Severe glenohumeral osteoarthritis. 2. Small 6 x 4 mm insertional partial tear of the subscapularis tendon with mild associated tendinosis. Mild supraspinatus tendinosis. No additional rotator cuff tears At this point would likely benefit from orthopedic evaluation and perhaps cortisone injection. Will get repeat x-ray right shoulder (2) CVA (cerebral vascular accident): Comment: Stroke in 2013 Code(s): I63.9 - Cerebral infarction, unspecified Qualifiers: CVA mechanism: embolism Precerebral and cerebral artery: unspecified precerebral artery Qualified Code(s): I63.10 - Cerebral infarction due to embolism of unspecified precerebral artery Plan: Continue to reduce risk factors for recurrent stroke. Advised on continuing 81 mg aspirin. (3) HTN (hypertension): Code(s): I10 - Essential (primary) hypertension Qualifiers: Hypertension type: primary hypertension Qualified Code(s): I10 - Essential (primary) hypertension Plan: Blood pressure today acceptable. Will continue his antihypertensive medication with goal blood pressure to remain below 140/90 (4) BPH (benign prostatic hyperplasia): Code(s): N40.0 - Benign prostatic hyperplasia without lower urinary tract symptoms Qualifiers: Lower urinary tract symptom presence: symptoms absent Qualified Code(s): N40.0 - Benign prostatic hyperplasia without lower urinary tract symptoms Plan: Now followed by Urology. Has upcoming urinary ultrasound. (5) Alcohol use disorder: Code(s): F10.90 - Alcohol use, unspecified, uncomplicated Plan: Unclear patient understands the amount beer he drinks per day is a bit excessive. Advised to cut down his drinking. Does report 5-6 beers per day. . (6) SANGITA (generalized anxiety disorder): Code(s): F41.1 - Generalized anxiety disorder Plan: Patient's SANGITA-7 score positive for anxiety which has been existing condition for him.. Not interested in speaking with a mental therapist at this time. Continues with mental health medications which have been helpful to reduce his anxiety. (7) MDD (major depressive disorder), recurrent episode, moderate: Code(s): F33.1 - Major depressive disorder, recurrent, moderate Plan: Patient's PHQ-9 score positive for depression which has been existing condition for him. He continues on mental health medications that are helpful. Still has somewhat of an anger issue. He has not interested in cognitive behavioral therapy. Orders: Orders XR shoulder RT min 2V 05/18/23 S46.011D - Strain of muscle(s) and tendon(s) of the rotator cuff of right shoulder, subsequent encounter Prostate Specific Antigen Scr 05/18/23 N40.0 - Benign prostatic hyperplasia without lower urinary tract symptoms, Z12.5 - Encounter for screening for malignant neoplasm of prostate Lipid Panel 05/18/23 I63.10 - Cerebral infarction due to embolism of unspecified precerebral artery Microalbumin, Random (w Creat) 05/18/23 I10 - Essential (primary) hypertension Comprehensive Sullivan. Panel Fast 05/18/23 I10 - Essential (primary) hypertension Complete Blood Count no Diff 05/18/23 I10 - Essential (primary) hypertension Referrals Orthopedics Referral S46.011D - Strain of muscle(s) and tendon(s) of the rotator cuff of right shoulder, subsequent encounter Medications: New diclofenac sodium 75 mg PO BID 10 days PRN 20 tabs 0RF pain S46.011D - Strain of muscle(s) and tendon(s) of the rotator cuff of right shoulder, subsequent encounter Coding Level of Care Code Est Pt Level 4 (31249) Diagnoses Traumatic incomplete tear of right rotator cuff, subsequent encounter S46.011D Encounter type: subsequent encounter Rotator cuff tear extent: incomplete Rotator cuff tear trauma status: traumatic Cerebrovascular accident (CVA) due to embolism of precerebral artery I63.10 CVA mechanism: embolism Precerebral and cerebral artery: unspecified precerebral artery Primary hypertension I10 Hypertension type: primary hypertension Benign prostatic hyperplasia without lower urinary tract symptoms N40.0 Lower urinary tract symptom presence: symptoms absent Alcohol use disorder F10.90 SANGITA (generalized anxiety disorder) F41.1 MDD (major depressive disorder), recurrent episode, moderate F33.1 Additional Codes SANGITA-7 Assessment Billing - SANGITA-7 Assessment Tool: SANGITA-7 Assessment 58715 ([id number])
== END 2023-05-18 15:28 | disposition home or self-care (01) ==
PROVIDERS: Visit Provider Physician Assistant
DX: I69.811 Memory deficit following other cerebrovascular disease (principal); I10 Essential (primary) hypertension; S46.011D Strain of muscle(s) and tendon(s) of the rotator cuff of right shoulder, subsequent encounter; N40.0 Benign prostatic hyperplasia without lower urinary tract symptoms; F10.90 Alcohol use, unspecified, uncomplicated; F41.1 Generalized anxiety disorder
CPT/HCPCS: 99214

== ENCOUNTER 2023-05-19 09:03 | Outpatient (AMB) | payer MEDICARE, SELFPAY ==
[2023-05-19 09:12] VITALS: BMI 25.7
--- NOTE | 2023-05-19 09:12 | A.OFFVIS_ITS ---
Intake Vital Signs 05/19/23 09:12 Height 5 ft 6 in Weight 159 lb BMI 25.7 Intake Visit Reasons: [employer]- RT Rotator cuff strain/ tear Intake Note: Mikey is a 67 year old Right handed male who presents as a new patient with Right shoulder pain. Patient reports that he fell on the corner of a table about 3 years ago. Patient denies and numbness or tingling. MRI done here on 04/30/2021. The patient has done physical therapy exercises which aggravated his pain. He has not had a cortisone injection. Has tried extra-strength Tylenol which gives him minimal relief. He wishes to hold off on surgery if at all possible. Allergies Penicillins Allergy (Severe, Verified 05/19/23 09:19) Hives Medication List - Last Reconciled 05/19/23 by Betito Ponce MD amlodipine 2.5 mg PO DAILY 90 days aspirin (Adult Aspirin Regimen) 81 mg PO DAILY 90 days atorvastatin 80 mg PO DAILY 90 days bupropion HCl 300 mg PO DAILY 90 days citalopram 40 mg PO DAILY 90 days cyclobenzaprine 10 mg PO TID PRN diclofenac sodium 75 mg PO BID PRN 10 days finasteride 5 mg PO DAILY 90 days folic acid 1 mg PO QAM 90 days hydroxyzine HCl 25 mg PO TID PRN lisinopril 10 mg PO DAILY 90 days tamsulosin 0.4 mg PO DAILY 90 days [facility] Medical History Muscle spasm Social History Housing: House Alcohol intake: current Alcohol intake frequency: 3 or more drinks per day Alcohol type: beer Patient Tobacco Use Status: Former Tobacco user Quit Date: 2012 Tobacco use type: Cigarette e-Cigarette/Vaping Use: Currently Using Substance Use Type: Marijuana service: No Current occupational status: retired and disabled Cognitive needs: No Hearing needs: Yes (right ear issue. Pt saw hearing evaluation already. ) Vision needs: No Physical Exam Vital Signs: BMI result Body Mass Index 25.7 Const Other: Well-nourished well-developed very friendly male awake alert and oriented x3 in no acute distress Extrem Other: Bilateral upper extremity examination shows good capillary refill, no skin lesions noted, normal sensation light touch Right shoulder examination shows decreased range of motion when compared to his left shoulder, 4+ out of 5 strength with supraspinatus testing, positive impingement signs, tenderness over his acromioclavicular joint, no instability Office Procedures Joint Injection/Drain Joint Injection/Drain Primary Site: right shoulder Prep: site was prepped using aseptic technique Injected: 40 mg of, DepoMedrol and 1% plain lidocaine Procedure: The patient tolerated the procedure well Coding 39571 - Large joint Procedure code (CPT) selection complete Results Reviewed Results Reviewed: X-rays of the patient's right shoulder taken in 2020 show moderate glenohumeral joint degenerative changes, severe acromioclavicular joint narrowing, a type 2 acromion MRI of the patient's right shoulder taken in 2020 show moderate glenohumeral joint degenerative changes, signal change within the supraspinatus tendon most likely due to rotator cuff tendinosis versus a small tear, severe acromioclavicular joint narrowing, a type 2 acromion Assessment & Plan Assessment & Plan (1) Arthritis of right shoulder region: Code(s): M19.011 - Primary osteoarthritis, right shoulder Plan Mr. Terry presents with right shoulder pain and stiffness due to glenohumeral joint arthritis, impingement syndrome, adhesive capsulitis and rotator cuff tendinosis versus a small rotator cuff tear. I had a lengthy discussion with the patient regarding the treatment options. He wishes to hold off on surgery for as long as possible. I agree with this plan. The risks and benefits of a right shoulder cortisone injection were discussed at length with the patient. The patient wished to proceed. He tolerated the injection well. He will continue with his home stretching program to prevent stiffness. The patient will follow up with me on an as-needed basis should his symptoms not plateau at an unacceptable level over the next few months. Feel free to call me at any time should questions regarding his orthopedic management arise. I spent 22 minutes in reviewing the patient's records and imaging studies, seeing the patient and documenting in the medical record. Orders: Orders AMB Joint Injection/Aspiration Today M19.011 - Primary osteoarthritis, right shoulder Coding Level of Care Code New Pt Level 2 (90721) Diagnoses Arthritis of right shoulder region M19.011 CPT Codes Coding - Large joint: 30398 - Large joint ([id number])
== END 2023-05-19 09:51 | disposition home or self-care (01) ==
PROVIDERS: PCP Physician Assistant; Visit Provider Orthopaedic Surgery
DX: M19.011 Primary osteoarthritis, right shoulder (principal)
CPT/HCPCS: 20610; 99203

== ENCOUNTER → 2023-05-19 09:03 | Outpatient (BNVA) | payer MEDICARE, SELFPAY | PROVIDERS: PCP Physician Assistant; Visit Provider Orthopaedic Surgery | DX: M19.011 Primary osteoarthritis, right shoulder (principal) | CPT/HCPCS: 20610; 99202; J1020 ==

== ENCOUNTER 2023-05-20 12:28 | Outpatient (REF) | payer MEDICARE, SELFPAY ==
--- NOTE | ~2023-05-20 | US_ITS ---
EXAMINATION: US RETROPERITONEAL LIMITED (RENAL ONLY) CLINICAL INFORMATION: Benign prostatic hyperplasia without lower urinary tract symptoms. COMPARISON: None available. TECHNIQUE: Real-time imaging of the kidneys. FINDINGS: RIGHT KIDNEY: 8.3 x 5.4 x 4.9 cm (SAG x AP x TRV). The kidney is normal in size, contour, and echogenicity. Renal cortical thickness is normal. No renal calculi or hydronephrosis. At the interpolar aspect, a 7 mm benign, simple exophytic cyst is seen, for which no imaging follow-up is recommended. LEFT KIDNEY: 9.0 x 5.4 x 4.7 cm (SAG x AP x TRV). The kidney is normal in size, contour, and echogenicity. Renal cortical thickness is normal. No calculi or focal parenchymal lesions. No hydronephrosis. US/US retroperitoneal limited IMPRESSION: Unremarkable ultrasound appearance of the bilateral kidneys.
--- NOTE | ~2023-05-20 | US_ITS ---
EXAMINATION: US SCROTUM CLINICAL INFORMATION: Cyst of the epididymis. COMPARISON: None available. TECHNIQUE: A sonogram of the scrotum was performed assessing peter-scale appearance and color Doppler flow. Spectral Doppler analysis of the arterial and venous flow were performed in the testes bilaterally. FINDINGS: RIGHT: Right testicle measures 4.0 x 2.1 x 2.9 cm, volume 13.0 mL. No focal testicular parenchymal lesions are visualized. Spectral Doppler analysis of the arterial and venous flow is normal in the right testis. Right epididymal head is normal in size. Multiple epididymal cysts are seen, the largest measuring up to 1.5 cm. No right hydrocele or varicocele is seen. Right epididymal Doppler flow is normal. LEFT: Left testicle measures 3.8 x 2.0 x 2.3 cm, volume 8.7 mL. No focal testicular parenchymal lesions are visualized. Spectral Doppler analysis of the arterial and venous flow is normal in the left testis. Left epididymal head is normal in size. Multiple epididymal cysts are noted, the largest measuring up to 1.6 cm. No left hydrocele or varicocele is seen. Left epididymal Doppler flow is normal. US/US scrotum IMPRESSION: Bilateral epididymal cysts.
== END 2023-05-20 12:29 | disposition home or self-care (01) ==
LOC: HO.US 12:28
PROVIDERS: Visit Provider Urology
DX: N40.0 Benign prostatic hyperplasia without lower urinary tract symptoms (principal); N50.3 Cyst of epididymis; R35.0 Frequency of micturition
CPT/HCPCS: 76775; 76870

== ENCOUNTER 2023-05-21 11:27 | Outpatient (REF) | payer MEDICARE, SELFPAY ==
--- NOTE | ~2023-05-21 | US_ITS ---
EXAMINATION: US PELVIS LIMITED (BLADDER) CLINICAL INFORMATION: Urinary frequency. COMPARISON: Renal ultrasound 05/20/2023. TECHNIQUE: Real-time imaging of the bladder. FINDINGS: BLADDER: Well distended and normal. Bilateral ureteral jets are demonstrated. Prevoid bladder volume is 475 mL. Postvoid bladder volume is 5 mL. ADDITIONAL FINDINGS: Prostate volume is measured at 22 mL. Prostatic calcifications are noted. US/US bladder IMPRESSION: No significant postvoid residual.
== END 2023-05-21 11:28 | disposition home or self-care (01) ==
LOC: HO.HMGCX 11:27
PROVIDERS: PCP Physician Assistant; Visit Provider Urology
DX: N40.0 Benign prostatic hyperplasia without lower urinary tract symptoms (principal); R35.0 Frequency of micturition
CPT/HCPCS: 76857

== ENCOUNTER 2023-05-25 12:49 | Outpatient (AMB) | payer MEDICARE, SELFPAY ==
--- NOTE | 2023-05-25 12:54 | A.OFFVIS_ITS ---
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 Accompanied by: Self / Same As Patient Allergies Penicillins Allergy (Severe, Verified 05/25/23 12:56) Hives Medication List - Last Reconciled 05/25/23 by Fidencio Goodman MD amlodipine 2.5 mg PO DAILY 90 days aspirin (Adult Aspirin Regimen) 81 mg PO DAILY 90 days atorvastatin 80 mg PO DAILY 90 days bupropion HCl 300 mg PO DAILY 90 days citalopram 40 mg PO DAILY 90 days cyclobenzaprine 10 mg PO TID PRN diclofenac sodium 75 mg PO BID PRN 10 days finasteride 5 mg PO DAILY 90 days folic acid 1 mg PO QAM 90 days hydroxyzine HCl 25 mg PO TID PRN lisinopril 10 mg PO DAILY 90 days tamsulosin 0.4 mg PO DAILY 90 days HPI HPI Comments History of Present Illness Details Mikey is a 67-year-old male who presents today to the office for follow up for an evaluation of BPH/benign cyst of testis. 05/25/23--67-year-old with a past medical history significant for nicotine dependence, ethanol abuse, anxiety and history of stroke in 2012. He has been followed by other urology for BPH and he is on Proscar and Flomax. He was initially evaluated on 03/25/23 AUA symptom score was 11, the patient at which time he complained that he had a benign scrotal cyst removed many years ago by his previous urologist, and he feels that there it returned, exam at that time was not clinically significant. He states he is compliant with the proscar and flomax, denies dysuuria, nocturia 2 times. Evaluation today?UA--Leukocytes: negative; blood: trace. Review of chart: --03/25/2023-- Examination: Small cyst noted on left epididymis and also palpating what may be a cyst on the right epididymis. I have reviewed the PSA results from 02/02/2023 revealed 0.46 ng/mL. 05/25/23-Plan: FU in one year, cont tamsu losin and proscar, cont PSA screening PFSH Medical History Muscle spasm Social History Housing: House Alcohol intake: current Alcohol intake frequency: 3 or more drinks per day Alcohol type: beer Patient Tobacco Use Status: Former Tobacco user Quit Date: 2012 Tobacco use type: Cigarette e-Cigarette/Vaping Use: Currently Using Substance Use Type: Marijuana service: No Current occupational status: retired and disabled Cognitive needs: No Hearing needs: Yes (right ear issue. Pt saw hearing evaluation already. ) Vision needs: No Review of Systems Const All systems reviewed & are unremarkable except as noted in HPI and below Reports no additional complaints Eyes Reports no additional complaints ENT Reports no additional complaints Card Denies dyspnea Resp Denies cough and Denies dyspnea GI Reports no additional complaints Musc Reports no additional complaints Skin/Breast Denies rash and Denies unusual bruising Neuro Reports no additional complaints Psych Reports no additional complaints Endo Reports no additional complaints Guille/Lymph Reports no additional complaints Aller/Immun Reports no additional complaints Results AMB Urinalysis, Automated UA Leukoctes 0 Juancarlos/uL Last Edit by LEA Jones on 05/25/23 13:18 UA Nitrite Negative Last Edit by LEA Jones on 05/25/23 13:18 UA Urobilinogen 0.2 mg/dL Last Edit by LEA Jones on 05/25/23 13:1 8 UA Protein 0 mg/dL Last Edit by LEA Jones on 05/25/23 13:18 UA pH 6.0 Last Edit by LEA Jones on 05/25/23 13:18 UA Blood 0 Grady/uL Last Edit by LEA Jones on 05/25/23 13:18 UA Specific [place] 1.025 Last Edit by LEA Jones on 05/25/23 13: 18 UA Ketone Negative Last Edit by LEA Jones on 05/25/23 13:18 UA Bilirubin 0 mg/dL Last Edit by LEA Jones on 05/25/23 13:18 UA Glucose 0 mg/dL Last Edit by LEA Jones on 05/25/23 13:18 Results Reviewed Results Reviewed: Laboratory Last Values Urine pH (Auto) 6.0 05/25/23 13:16 Specific [place] (Auto) 1.025 05/25/23 13:16 Urine Protein (Auto) 0 mg/dL 05/25/23 13:16 Glucose (UA)(Auto) 0 mg/dL 05/25/23 13:16 Urine Ketones (Auto) Negative 05/25/23 13:16 Urine Blood (Auto) 0 Grady/uL 05/25/23 13:16 Urine Nitrite (Auto) Negative 05/25/23 13:16 Urine Bilirubin (Auto) 0 mg/dL 05/25/23 13:16 Urine Urobilinogen (Auto) 0.2 mg/dL 05/25/23 13:16 Leukocyte Esterase (Auto) 0 Juancarlos/uL 05/25/23 13:16 Assessment & Plan Assessment & Plan (1) Screening PSA (prostate specific antigen): Code(s): Z12.5 - Encounter for screening for malignant neoplasm of prostate (2) Epididymal cyst: Code(s): N50.3 - Cyst of epididymis (3) BPH (benign prostatic hyperplasia): Code(s): N40.0 - Benign prostatic hyperplasia without lower urinary tract symptoms Qualifiers: Lower urinary tract symptom presence: symptoms absent Qualified Code(s): N40.0 - Benign prostatic hyperplasia without lower urinary tract symptoms Plan FU in one year, cont tamsulosin and proscar, cont PSA screening Orders: Orders AMB Urinalysis Automated 05/25/23 Z13.9 - Encounter for screening, unspecified PSA,Total (Free>4and<10) 10 Months Z12.5 - Encounter for screening for malignant neoplasm of prostate Medications: Refilled tamsulosin 0.4 mg PO DAILY 90 caps 1RF 90 days N40.0 - Benign prostatic hyperplasia without lower urinary tract symptoms finasteride 5 mg PO DAILY 90 tabs 1RF 90 days N40.0 - Benign prostatic hyperplasia without lower urinary tract symptoms Coding Level of Care Code Est Pt Level 4 (39392) Diagnoses Screening PSA (prostate specific antigen) Z12.5 Epididymal cyst N50.3 Benign prostatic hyperplasia without lower urinary tract symptoms N40.0 Lower urinary tract symptom presence: symptoms absent
== END 2023-05-25 13:38 | disposition home or self-care (01) ==
PROVIDERS: Visit Provider Urology
DX: Z12.5 Encounter for screening for malignant neoplasm of prostate (principal); N50.3 Cyst of epididymis; N40.0 Benign prostatic hyperplasia without lower urinary tract symptoms
CPT/HCPCS: 99214

== ENCOUNTER → 2023-05-25 12:49 | Outpatient (BNVA) | payer MEDICARE, SELFPAY | PROVIDERS: Visit Provider Urology | DX: Z12.5 Encounter for screening for malignant neoplasm of prostate (principal); N50.3 Cyst of epididymis | CPT/HCPCS: 81003; 99212 ==

== ENCOUNTER 2023-08-18 11:12 | Outpatient (AMB) | payer MEDICARE, SELFPAY ==
--- NOTE | 2023-08-18 11:15 | A.OFFVIS_ITS ---
Intake Intake Visit Reasons: OV-RT Rotator cuff strain/tear injection F/U Intake Note: Mikey is a 67 year old Right hand dominate male who presents for a follow up after his Right shoulder injection on 05/19/2023. Patient reports the injection gave him good relief. He reports mild intermittent discomfort along the lateral and posterior aspects of his right shoulder. He reports mild weakness when lifting his right hand above shoulder height. Patient states that his pain increases when he tries to throw with his right arm. He has taken Tylenol and anti-inflammatory medicines which gave him some relief. Allergies Penicillins Allergy (Severe, Verified 08/18/23 11:19) Hives Medication List - Last Reconciled 08/18/23 by Betito Ponce MD amlodipine 2.5 mg PO DAILY 90 days aspirin (Adult Aspirin Regimen) 81 mg PO DAILY 90 days atorvastatin 80 mg PO DAILY 90 days bupropion HCl XL 300 mg PO DAILY 90 days citalopram 40 mg PO DAILY 90 days cyclobenzaprine 10 mg PO TID PRN diclofenac sodium 75 mg PO BID PRN 10 days finasteride 5 mg PO DAILY 90 days folic acid 1 mg PO QAM 90 days hydroxyzine HCl 25 mg PO TID PRN lisinopril 10 mg PO DAILY 90 days tamsulosin 0.4 mg PO DAILY 90 days [facility] Medical History Muscle spasm Social History Housing: [place] Alcohol intake: current Alcohol intake frequency: 3 or more drinks per day Alcohol type: beer Patient Tobacco Use Status: Former Tobacco user Quit Date: 2012 Tobacco use type: Cigarette e-Cigarette/Vaping Use: Currently Using Substance Use Type: Marijuana service: No Current occupational status: retired and disabled 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 Pt saw hearing evaluation already. ) Vision needs: No Physical Exam Const Other: Well-nourished well-developed very friendly male awake alert and oriented x3 in no acute distress Extrem Other: Bilateral upper extremity examination shows good capillary refill, no skin lesions noted, normal sensation light touch Right shoulder examination shows full range of motion when compared to his left shoulder, 4/5 strength with supraspinatus testing, positive impingement signs, tenderness over his acromioclavicular joint, no instability Assessment & Plan Assessment & Plan (1) Right shoulder pain: Code(s): M25.511 - Pain in right shoulder Plan Mr. Terry presents for follow-up of his right shoulder pain due to impingement syndrome and a small rotator cuff tear. I had a lengthy discussion with the patient regarding the treatment options. At this point the patient's symptoms are tolerable to him. The do's and don'ts of lifting were discussed at length with the patient. He will follow up with me on an as-needed basis should his symptoms worsen in any way. Feel free to call me at any time should questions regarding his orthopedic management arise. I spent 22 minutes in reviewing the patient's records and imaging studies, seeing the patient and documenting in the medical record. Coding Level of Care Code Est Pt Level 2 (64308) Diagnoses Right shoulder pain M25.511
== END 2023-08-18 11:37 | disposition home or self-care (01) ==
PROVIDERS: PCP Physician Assistant; Visit Provider Orthopaedic Surgery
DX: M25.511 Pain in right shoulder (principal)
CPT/HCPCS: 99213

== ENCOUNTER → 2023-08-18 11:12 | Outpatient (BNVA) | payer MEDICARE, SELFPAY | PROVIDERS: PCP Physician Assistant; Visit Provider Orthopaedic Surgery | DX: M25.511 Pain in right shoulder (principal) | CPT/HCPCS: 99212 ==

== ENCOUNTER 2024-03-16 14:22 | Outpatient (AMB) | payer MEDICARE, SELFPAY ==
--- NOTE | 2024-03-16 14:26 | MHC.PC.OV ---
Vital Signs 03/16/24 14:28 Height 5 ft 6 in Weight 169 lb 2 oz BMI 27.3 BP 140/80 H Blood Pressure Location Lt brachial Position Sitting Pulse 72 Pulse Source Pulse Oximeter Pulse Oximetry (%) 98 Oxygen Delivery Method Room Air Intake Visit Reasons: Annual Physical Intake Note: Patient is here today for a physical. Student Education Specialist Required: No Accompanied by: Self / Same As Patient Allergies Penicillins Allergy (Severe, Verified 03/16/24 14:44) Hives Medication List - Last Reconciled 03/16/24 by Santy Fernandez PA-C amlodipine 2.5 mg PO DAILY 90 days aspirin (Adult Aspirin Regimen) 81 mg PO DAILY 90 days atorvastatin 80 mg PO DAILY 90 days bupropion HCl XL 300 mg PO DAILY 90 days citalopram 40 mg PO DAILY 90 days cyclobenzaprine 10 mg PO TID PRN diclofenac sodium 75 mg PO BID PRN 10 days finasteride 5 mg PO DAILY folic acid 1 mg PO QAM 90 days hydroxyzine HCl 25 mg PO TID PRN lisinopril 10 mg PO DAILY 90 days tamsulosin 0.4 mg PO DAILY 90 days Tobacco use date assessed: 05/18/23 Fall risk assessment: No Falls in past year Last assessed Fall Risk: 03/16/24 Dental Screening Dental Screen Date: 05/18/23 HPI Annual Physical HPI Details Patient is a 68-year-old male here today for a follow-up visit. Patient has a past medical history significant for hyperlipidemia, hypertension, anxiety depression, BPH, CVA ( 2012), PAD. Concern--> continues to have right shoulder pain and limited range of motion. He reports a traumatic fall in 2020 landing on his right shoulder. He did do chiropractics and physical therapy at that time. MRI of right shoulder in 2020 showing--> . Severe glenohumeral osteoarthritis. 2. Small 6 x 4 mm insertional partial tear of the subscapularis tendon with mild associated tendinosis. Mild supraspinatus tendinosis. No additional rotator cuff tears. He wonders about returning back to orthopedics for another cortisone injection which has helped him in the past .. CVA: Had a stroke in 2012, has been on high potency statin and aspirin since. Has neurology follow-up with this time. Does not have any more in deficits besides his memory issues. .. Hypertension: Patient's blood pressure slightly elevated today in office. He reports he has a bit stress today. Continues on amlodipine 2.5 mg and lisinopril 10 mg which has been effective for his blood pressure management. .. Alcohol use disorder: He does understand somewhat that he drinks excessively. He has report having 5-6 beers per day. .. Anxiety/ anger issue: He continues with use of bupropion and citalopram and as needed hydroxyzine for anxiety and agitation. Does not speak with a mental health therapist or psychiatrist at this time. colon cancer screening : willing to do COlonoscopy VAccine:declines FLu vaccine, UTD with COVID, UTD with td, NEed [id number] today [facility] Medical History Muscle spasm Social History Housing: House Alcohol intake: current Alcohol intake frequency: 3 or more drinks per day Alcohol type: beer Patient Tobacco Use Status: Former Tobacco user Tobacco use type: Cigarette e-Cigarette/Vaping Use: Currently Using Substance Use Type: Marijuana service: No Current occupational status: retired and disabled 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 Pt saw hearing evaluation already. ) Vision needs: No Questionnaire PHQ-9 Over the last 2 weeks, how often have you been bothered by any of the following problems? 1. Little interest or pleasure in doing things: nearly every day 2. Feeling down, depressed, or hopeless: nearly every day 3. Trouble falling or staying asleep, or sleeping too much: nearly every day 4. Feeling tired or having little energy: nearly every day 5. Poor appetite or overeating: not at all 6. Feeling bad about yourself - or that you are a failure or have let yourself or your family down: not at all 7. Trouble concentrating on things, such as reading the newspaper or watching television: nearly every day 8. Moving or speaking so slowly that other people could have noticed. Or the opposite - being so fidgety or restless that you have been moving around a lot more than usual: not at all 9. Thoughts that you would be better off or of hurting yourself in some way: not at all Total score: 15 Depression Screening Interpretation: Negative Depression Screening Done: Yes 92954 - PHQ-9 Billing: Yes Source: Developed by Drs. Devin Shah, Katherin Goldman, Daquan Beyer and colleagues, with an educational sander from [employer]. Thrive Questionnaire Date Thrive assessed: 03/16/24 I am a: Patient What is your living situation today?: I have a steady place to live Within the past 12 months, did the food you bought not last and you didn't have the money to get more?: I choose not to answer this question Within the past 12 months, did you worry whether your food would run out before you got money to buy more?: I choose not to answer this question Do you have trouble paying for medicines?: I choose not to answer this question Do you have trouble getting transportation to medical appointments?: No Do you have trouble paying your heating and electricity bill?: I choose not to answer this question Do you have trouble taking care of your child, family member or friend?: I choose not to answer this question Do you have trouble with day-to-day activities such as bathing, preparing meals, shopping, managing finances, etc.?: No Are you currently unemployed and looking for a job?: No Are you interested in more education?: I choose not to answer this question Please select the resources that you would like help with: None Currently or been in a relationship where the following occur: I choose not to answer THRIVE Score: 0 AUDIT C Alcohol Use Questionnaire (AUDIT-C) 1. How often do you have a drink containing alcohol?: 4 or more times a week 2. How many drinks containing alcohol do you have on a typical day when you are drinking?: 3 or 4 3. How often do you have six or more drinks on one occasion?: Less than monthly Total Score: 6 SANGITA-7 AMB Questionnaire SANGITA-7 Date SANGITA - 7 assessed: 03/16/24 Feeling nervous, anxious, or on edge: 3 = Nearly every day Not being able to stop or control worryin = Nearly every day Worrying too much about different things: 3 = Nearly every day Trouble relaxin = Not at all Being so restless that it is hard to sit still: 0 = Not at all Becoming easily annoyed or irritable: 3 = Nearly every day Feeling afraid as if something awful might happen: 0 = Not at all Total SANGITA-7 score (0-4 normal; 5-9 mild; 10-14 moderate; 15-21 severe): 12 Source: Developed by Drs. Devin Shah, Katherin Goldman, Daquan Beyer and colleagues, with an educational sander from [employer]. SANGITA-7 Assessment Billing SANGITA-7 Assessment Tool: SANGITA-7 Assessment 24496 Review of Systems Const Denies body aches, Denies chills, Denies excessive sweating, Denies fatigue, Denies fever(s) and Denies headache(s) Eyes Denies blurry vision ENT Denies dysphagia, Denies vertigo, Denies dizziness, Denies headache(s), Denies hearing loss and Denies tinnitus Card Denies chest pain, Denies chest pain with activity, Denies syncope, Denies irregular heart rhythm and Denies dyspnea Resp Denies chest congestion, Denies cough, Denies hemoptysis, Denies dyspnea and Denies wheezing GI Denies abdominal pain, Denies melena, Denies hematochezia, Denies coffee ground emesis, Denies dysphagia, Denies diarrhea, Denies nausea and Denies vomiting Denies difficulty urinating, Denies dysuria, Denies urinary frequency, Denies urinary hesitancy and Denies urinary urgency Musc Denies arthralgias, Denies limited range of motion, Denies muscle cramps and Denies muscle weakness Skin/Breast Denies rash and Denies skin ulcer Neuro Denies Abnormal speech present, Denies confusion, Denies vertigo, Denies dizziness, Denies syncope, Denies headache(s), Denies memory loss and Denies seizure-like activity Psych Denies anxiety, Denies confusion, Denies depression, Denies memory loss, Denies panic attacks and Denies paranoia Endo Denies excessive sweating, Denies fatigue, Denies flushing, Denies polydipsia and Denies polyuria Aller/Immun Denies wheezing Physical exam (Primary Care) Vital Signs: Last Vital Signs Pulse 72 03/16/24 14:28 BP 140/80 H 03/16/24 14:28 Pulse Ox 98 03/16/24 14:28 Oxygen Delivery Method Room Air 03/16/24 14:28 BMI result Body Mass Index 27.3 Tobacco/Smoking Status: Tobacco use Status Tobacco use date assessed 05/18/23 03/16/24 14:26 Patient Tobacco Use Status Former Tobacco user 03/16/24 14:26 Tobacco use type Cigarette 03/16/24 14:26 e-Cigarette/Vaping Use Currently Using 03/16/24 14:26 PHQ-9: PHQ-9 Score PHQ-9: Total score 15 03/16/24 14:39 Depression Screening Interpretation: Negative Thrive Assessment: Date of Thrive Assessment Date Thrive assessed 03/16/24 03/16/24 14:33 Currently or been in a relationship where the following occur: I choose not to answer Const General: cooperative, comfortable, no acute distress, alert and awake; No confusion Orientation/consciousness: oriented to person, oriented to place, patient oriented x3 and No confusion HENMT Head: Yes normocephalic Ears: external ears normal and TM's normal bilaterally Face and sinus: No sinus tenderness Mouth: Normal oral and palatal mucosa present and tongue normal Teeth and gingiva: dentition normal and gingiva normal Throat: Yes posterior oropharynx normal, Yes tonsils normal and Yes uvula midline Eyes Conjunctivae: conjunctivae normal Sclerae: sclerae normal Pupils: Equal, round and reactive pupils present EOM: EOMs intact bilaterally Direct Ophthalmoscopy: No no photophobia Neck Neck: Yes no lymphadenopathy, No tender and Yes no JVD Thyroid: Thyroid normal Carotids: no bruits Chest Chest palpation & inspection: no tenderness Resp Effort & Inspection: normal respiratory effort, no audible wheezes, not labored and no stridor Auscultation: no crackles, no rales, no rhonchi and no wheezes Cardio Jugular venous distension: no JVD Rate: regular rate, not bradycardic and not tachycardic Rhythm: regular rhythm Bruits: no carotid bruits Peripheral pulses: Peripheral pulses 2+ throughout GI Inspection: Yes normal to inspection, No abdominal wall ecchymosis and No visible herniation Palpation (GI): Soft to palpation, nontender, no guarding, not rigid and No hepatosplenomegaly present Auscultation: normoactive bowel sounds General: Yes no CVA tenderness Back/Spine/Pelvis Back: no CVA tenderness and No back tenderness Cervical Spine: cervical ROM normal Thoracic/Lumbar Spine: thoracic and lumbar spine normal to inspection, straight leg raise negative bilaterally, No thoraco-lumbar ROM limited and No lumbar spinal tenderness Skin Lesions: no lesions Rashes: no rashes Wounds: no wounds Neuro General: oriented to person, oriented to place, patient oriented x3, CN's II-XI intact bilaterally and No confusion Cranial nerves: Yes Equal, round and reactive pupils present and Yes Normal accommodation reflex present Cognition (Neuro): normal cognition Speech: No Abnormal speech present Gait exam (Neuro): Normal gait present Motor exam (neuro): 5/5 motor strength present throughout Extrem Right upper extremity: full ROM; no cyanosis Left upper extremity: full ROM; no cyanosis Right lower extremity: no edema Left lower extremity: no edema Psych Appearance: grossly normal Mental Status: mental status grossly normal Affect: normal affect Attitude: cooperative Thought process: Normal thought process present Office Procedures Flu Questionnaire Does the patient have a severe egg allergy?: No Immunizations Fluarix Triv [id number] (PF) 45 mcg (15 mcg x 3)/0.5 mL IM syringe Performing Provider: Santy Fernandez PA-C Per[facility] Documented (not given) by: ENRIQUETA Rhodes on 03/16/24 14:34 Reason Not Given: Patient Refused Coding Level of Care Code Est Pt Prev Care >65y(86335) Diagnoses Annual physical exam Z00.00 Cerebrovascular accident (CVA) due to embolism of precerebral artery I63.10 CVA mechanism: embolism Precerebral and cerebral artery: unspecified precerebral artery Primary hypertension I10 Hypertension type: primary hypertension Colon cancer screening Z12.11 MDD (major depressive disorder), recurrent episode, moderate F33.1 Additional Codes SANGITA-7 Assessment Billing - SANGITA-7 Assessment Tool: SANGITA-7 Assessment 20580 ([id number]) PHQ-9 - 78494 - PHQ-9 Billing: Yes ([id number]) Assessment & Plan Assessment & Plan (1) Annual physical exam: Code(s): Z00.00 - Encounter for general adult medical examination without abnormal findings Category: Medical Plan: As per HPI (2) CVA (cerebral vascular accident): Comment: Stroke in 2012 Code(s): I63.9 - Cerebral infarction, unspecified Category: Medical Qualifiers: CVA mechanism: embolism Precerebral and cerebral artery: unspecified precerebral artery Qualified Code(s): I63.10 - Cerebral infarction due to embolism of unspecified precerebral artery Plan: Patient continues on baby aspirin, high-dose statin therapy in antihypertensive medication. (3) HTN (hypertension): Code(s): I10 - Essential (primary) hypertension Category: Medical Qualifiers: Hypertension type: primary hypertension Qualified Code(s): I10 - Essential (primary) hypertension Plan: Patient's blood pressure slightly elevated today in office, has been a bit stress today due to check in process. Blood pressure usually WNL (4) Colon cancer screening: Code(s): Z12.11 - Encounter for screening for malignant neoplasm of colon Category: Medical Plan: Patient willing to do colonoscopy (5) MDD (major depressive disorder), recurrent episode, moderate: Code(s): F33.1 - Major depressive disorder, recurrent, moderate Category: Medical Plan: Patient's PHQ-9 score 0. He continues with mental health medications that are helpful. Also recently got a new dog which helps him with his mood. Orders: Orders Microalbumin, Random (w Creat) 11 Months I10 - Essential (primary) hypertension Comprehensive [place]. Panel Fast 11 Months I10 - Essential (primary) hypertension Lipid Panel 11 Months I63.10 - Cerebral infarction due to embolism of unspecified precerebral artery Influenza [id number] Immunization 03/16/24 Z23 - Encounter for immunization Complete Blood Count no Diff 11 Months I10 - Essential (primary) hypertension Referrals Gastroenterology Referral Z12.11 - Encounter for screening for malignant neoplasm of colon
[2024-03-16 14:28] VITALS: BP 140/80; PULSE 72; O2SAT 98; BMI 27.3
== END 2024-03-16 15:02 | disposition home or self-care (01) ==
PROVIDERS: PCP Physician Assistant; Visit Provider Physician Assistant
DX: Z00.00 Encounter for general adult medical examination without abnormal findings (principal); I63.10 Cerebral infarction due to embolism of unspecified precerebral artery; F33.1 Major depressive disorder, recurrent, moderate; I10 Essential (primary) hypertension; Z12.11 Encounter for screening for malignant neoplasm of colon

== ENCOUNTER → 2024-03-16 14:22 | Outpatient (BNVA) | payer MEDICARE, SELFPAY | PROVIDERS: PCP Physician Assistant; Visit Provider Physician Assistant | DX: Z00.00 Encounter for general adult medical examination without abnormal findings (principal); I63.10 Cerebral infarction due to embolism of unspecified precerebral artery; I10 Essential (primary) hypertension; F33.1 Major depressive disorder, recurrent, moderate | CPT/HCPCS: 90471; 96127; 99397 ==

== ENCOUNTER 2024-04-04 13:22 | Outpatient (REF) | payer MEDICARE, SELFPAY ==
[2024-04-04 16:27] LABS: Hematocrit 42.7 % (42.0-52.0); Hemoglobin 14.7 g/dl (14.0-18.0); Mean Corpuscular HGB Conc 34.4 g/dl (31.0-36.0); Mean Corpuscular Hemoglobin 32.4 pg (27.0-33.0); Mean Corpuscular Volume 94.1 fL (80.0-98.0); Mean Platelet Volume 10.7 fL (9.4-12.4); Platelet Count 263 X10*3/uL (160-400); Red Blood Count 4.54 X10*6/uL (4.60-5.80); Red Cell Distribution Width 13.1 % (11.0-16.0); White Blood Count 6.9 X10*3/uL (4.8-10.8)
[2024-04-04 17:30] LABS: Alanine Aminotransferase 19 U/L (0-40); Albumin Level 4.2 g/dL (3.5-5.0); Alkaline Phosphatase 56 U/L (39-117); Anion Gap 10 (12-20); Aspartate Amino Transferase 20 U/L (5-37); Bilirubin Total 0.7 mg/dL (0.0-1.0); Blood Urea Nitrogen 18 mg/dL (9-16); Calcium 9.4 mg/dL (8.4-10.2); Carbon Dioxide 28 mmol/L (22-29); Chloride 106 mmol/L (96-108); Cholesterol 181 mg/dL (<200); Estimated Glomerular Filt Rate 55; Glucose Fasting 101 mg/dL (60-99); HDL Cholesterol 61 mg/dL (>40); LDL Cholesterol Calculated 97 mg/dL (<100); Potassium 4.3 mmol/L (3.3-5.1); Sodium 140 mmol/L (135-145); Total Protein 6.9 g/dL (6.5-8.0); Triglycerides 117 mg/dL (<150)
[2024-04-04 17:38] LABS: Prostate Specific Antigen Scr 0.47 ng/mL (<0.05-4.0)
[2024-04-04 17:50] LABS: Creatinine Urine 237.08 mg/dL; Microalbum/Creatinine Ratio Ur 3.3 ug/mg cr (<30)
== END 2024-04-04 13:23 | disposition home or self-care (01) ==
LOC: HO.HMGCLDS 13:22
PROVIDERS: PCP Physician Assistant; Visit Provider Physician Assistant
DX: I10 Essential (primary) hypertension (principal); N40.0 Benign prostatic hyperplasia without lower urinary tract symptoms; I63.10 Cerebral infarction due to embolism of unspecified precerebral artery; Z12.5 Encounter for screening for malignant neoplasm of prostate
CPT/HCPCS: 36415; 80053; 80061; 82043; 82570; 84153; 85027

== ENCOUNTER 2024-08-11 12:44 | Outpatient (AMB) | payer MEDICARE, SELFPAY ==
[2024-08-11 12:49] VITALS: BP 129/61; PULSE 69; BMI 27.5
--- NOTE | 2024-08-11 12:49 | MHC.OFFVIS ---
Vital Signs 08/11/24 12:49 Height 5 ft 6 in Weight 170 lb 3.15 oz BMI 27.5 BP 129/61 Blood Pressure Location Lt brachial Position Sitting Pulse 69 Intake Visit Reasons: [place] screening Intake Note: New patient in office today for colonoscopy screening. CC: Patient c/o abdominal pain today. Denies other GI symptoms today. Inspectors And Regulatory Officers Required: No Accompanied by: Self / Same As Patient Allergies Penicillins Allergy (Severe, Verified 08/11/24 12:59) Hives HPI HPI [place] screening: Details: 68-year-old male here for preprocedural meeting to discuss a screening colonoscopy. He is referred by Santy Fernandez. PMX Alcohol use disorder Hypertension History of CVA Right shoulder tendinitis BPH Depression with anxiety * SURGICAL HISTORY Testicular surgery Tonsillectomy * ALLERGIES Penicillin - hives * [facility] LABS: Laboratory Tests 04/04/24 13:29 WBC 6.9 Hgb 14.7 Hct 42.7 MCV 94.1 MCH 32.4 Plt Count 263 Estimated GFR 55 Total Bilirubin 0.7 AST 20 ALT 19 Alkaline Phosphatase 56 TODAY'S VISIT He had a prior colonoscopy at age 52 at [facility]. He had abdominal pain for a few days after the procedure. TO his memory there were no polyps.n He denies any prior problems with anesthesia or sedation. No bowel or upper Gi problems. NO ID problems. He has no known FHX of CRC or polyps. [facility] Medical History Muscle spasm Surgical History History of tonsillectomy History of testicular surgery H/O colonoscopy Family History Family/Other Cancer Mother Stroke Diabetes Social History Housing: House Alcohol intake: current Alcohol intake frequency: 3 or more drinks per day Alcohol type: beer Patient Tobacco Use Status: Former Tobacco user Tobacco use type: Cigarette e-Cigarette/Vaping Use: Currently Using Substance Use Type: Marijuana service: No Current occupational status: retired and disabled 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 Pt saw hearing evaluation already. ) Vision needs: No Review of Systems Const Denies fatigue, Denies fever(s), Denies night sweats, Denies poor appetite and Denies weight loss ENT Reports Normal hearing present, Denies dental pain, Denies dysphagia, Denies hearing loss, Denies mouth pain, Denies odynophagia, Denies throat swelling, Denies tongue swelling and Reports other (Dentition adequate) Card Reports no additional complaints Resp Reports no additional complaints GI Details: Denies abdominal pain, Denies melena, Denies bloating, Denies hematochezia, Denies constipation, Reports GI cramping, Denies dysphagia, Denies excessive flatus, Denies early satiety, Denies heartburn, Denies diarrhea, Denies nausea, Denies odynophagia, Denies vomiting and Denies hematemesis Skin/Breast Denies pruritus, Denies lesions, Denies rash and Denies jaundice Neuro Reports Normal hearing present and Denies Abnormal speech present Endo Denies fatigue Aller/Immun Denies throat swelling and Denies tongue swelling Physical Exam Vital Signs: BMI result Body Mass Index 27.5 Const General: cooperative, no acute distress, well developed and well groomed Nutritional Appearance: average body habitus and well nourished Orientation/consciousness: oriented to person, oriented to place and oriented to time Limitations: No language barrier HEENT Head: Yes normocephalic and Yes atraumatic Eyes General: appearance normal, both eyes and all related structures Pupils: Equal, round and reactive pupils present Neck Neck: Yes normal visual inspection and Yes no lymphadenopathy Thyroid: Thyroid normal Resp Effort & Inspection: normal respiratory effort and able to speak in complete sentences Auscultation: clear to auscultation bilaterally Cardio Rate: regular rate Rhythm: regular rhythm Heart sounds: Normal, physiologic split S2 sound present Peripheral pulses: radial pulses present and posterior tibial pulses present GI Inspection: No distended and No Abdominal panniculus present Palpation (GI): Soft to palpation, nontender, no guarding, not rigid and No hepatosplenomegaly present Percussion: Yes normal to percussion Auscultation: normal bowel sounds Rectal Exam - Male: Yes deferred Skin General skin exam: no rashes or lesions noted, turgor normal, skin not dry, no jaundice, No spider nevi and no striae Rashes: no rashes Nails: normal Neuro General: oriented to person, oriented to place and oriented to time Cranial nerves: Yes Equal, round and reactive pupils present and Yes Normal hearing present Speech: No Abnormal speech present Extrem General: Yes normal to inspection, No clubbing, No cyanosis and No edema Psych Appearance: grossly normal and well kempt Mental Status: mental status grossly normal Speech and movement: Normal speech and movement present Affect: normal affect Attitude: cooperative Thought process: Normal thought process present and not confabulating Thought content: Normal thought content present Insight: Limited insight present (Psych) Judgement: Limited judgement present (Psych) Assessment & Plan Assessment & Plan (1) Pre-op examination: Code(s): Z01.818 - Encounter for other preprocedural examination Category: Medical Plan He had a prior colonoscopy at age 52 at [facility]. He had abdominal pain for a few days after the procedure. TO his memory there were no polyps.n He denies any prior problems with anesthesia or sedation. No bowel or upper Gi problems. NO ID problems. He has no known FHX of CRC or polyps. Orders: Orders Colonoscopy - GI Use Only Today Z01.818 - Encounter for other preprocedural examination Medications: New sodium,potassium,mag sulfates 17.5-3.13-1.6 gram (Suprep Bowel Prep Kit) 480 mL orally; FOR COLONOSCOPY PREP 354 mL 0RF Coding Level of Care Code New Pt Level 3 (87281) Diagnoses Pre-op examination Z01.818
--- OUTSIDE RECORDS SUMMARY | 2024-08-11 15:13 | XMS_ITS | Clinical Summary ---
Author Organization [employer] Address [address] [facility] 7[address] [place] [address] Care Team Providers Care Form Setter Helper Name Role Phone Vita Winn MD Primary Care Pro vider Medications citalopram (CeleXA) 40 MG tablet take 1 tablet by oral route every day 90 tablet 1 08/04/2022 Active folic acid (Folvite) 1 MG tablet Take 1 tablet (1,000 mcg) by mouth in the morning. 90 tablet 1 10/01/2022 Active buPROPion XL (Wellbutrin XL) 300 MG 24 hr tablet Take 1 tablet (300 mg) by mouth in the morning. Do not crush, chew, or split. 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 Benign prostatic hyperplasia 10/28/2017 Alcohol abuse 11/27/2016 Erectile dysfunction 11/27/2016 Hyperlipidemia 11/27/2016 Anxiety disorder 08/28/2016 Essential hypertension 08/28/2016 Mild cognitive disorder 08/28/2016 Immunizations Name Administration Dates Next Due Moderna Covid-19 Vaccine 12+ 05/08/2021,09/13/19 21,08/15/2020 TD (adult), 2 Lf tetanus tox oid, preservative free, adsorbed 05/02/2020 Tdap 02/07/2010 Zoster, Recombinant 12/19/2020,10/17/2020 Social History Tobacco Use Types Packs/Day Years Used Date Smoking Tobacco: Never Assessed Sex and Gender Information Value Date Recorded Sex Assigned at Male 03/03/2022 10:17 AM EDT Legal Sex Male 10:17 AM EDT Gender Identity Male 03/03/2022 10:17 AM EDT Sexual Orientation Straight 03/03/2022 10 :17 AM EDT Last Filed Vital Signs Vital Sign Reading Time Taken Comments Blood Pressure 114/70 11/20/2021 12:07 AM EDT Pulse 88 11/20/2021 12:07 AM EDT Temperature - - Respiratory Rate - - Oxygen Saturation - - Inhaled Oxygen Concentration - - Weight 82.2 kg (181 lb 3.2 oz) 11/20/2021 12:07 AM EDT Height 171.5 cm (5' 7.5 ) 11/20/2021 12:07 AM ED T Body Mass Index 27.96 11/20/2021 12:07 AM EDT Plan of Treatment Health Maintenance Due Date Last Done Comments CT Colonography 1957 Colonoscopy 1957 Colorectal Cancer Screening 1957 Depression Screening 1957 FIT DNA/Cologuard 1957 FIT 1957 FOBT 1957 Sigmoidoscopy 1957 Alcohol/Substance Use Screening 1969 Tobacco Screening 1969 Pneumococcal Vaccine: 50+ Years (1 of 1 - PCV) 11/15/2007 COVID-19 Vaccine (4 2023-2 5 season) 2024 05/08/2021, 09/12/2020, 08/15/2020 Influenza Vaccine (#1) 2024 Lipid Panel 11/20/2026 11/20/2021, 05/02/2020 DTaP/Tdap/Td Vaccines (3 - T d or Tdap) 05/02/2030 05/02/2020, 02/07/2010 RSV Patients and Patients Aged 60 years or older (1 - 1-dose 75+ series) 2032 Zoster Vaccines Completed 12/19/2020, 10/17/2020 HIB Vaccines Aged Out No longer eligi ble based on patient's age to complete this topic HPV Vaccines Aged Out No longer eligi ble based on patient's age to complete this topic Hepatitis A Vaccines Aged Out No long er eligible based on patient's age to complete this topic Hepatitis B Vaccines Aged Out No long er eligible based on patient's age to complete this topic IPV Vaccines Aged Out No longer eligi ble based on patient's age to complete this topic Meningococcal Vaccine Aged Out No balaji rich eligible based on patient's age to complete this topic RSV under 20 months Aged Out No longe r eligible based on patient's age to complete this topic Rotavirus Vaccines Aged Out No longer eligible based on patient's age to complete this topic Procedures Procedure Name Priority Date/Time Associated Diagnosis Comments LIPID PANEL, STANDARD Routine 11/20/2021 4:38 PM EDT from Last 3 Months or Most Recently Relevant to Health Maintenance Results * LIPID PANEL, STANDARD (11/20/2021 4:38 PM EDT) Chol/HDLC Ratio 2.6 <5.0 (calc) [facility] Cholesterol, Total 180 <200 mg/dL [facility] HDL Cholesterol 69 > OR = 40 mg/dL [facility] LDL Cholesterol 94 mg/dL (calc) [facility] Comment: Reference range: <100 ?? Desirable range <100 mg/dL for primary prevention; ?? <70 mg/dL for patients with CHD or diabetic patients ?? with > or = 2 CHD risk factors. ?? LDL-C is now calculated using the Neo-Ryley ?? calculation, which is a validated novel method providing ?? better accuracy than the Friedewald equation in the ?? estimation of LDL-C. ?? Neo SS et al. YOKO. 2013;310(19): 2612-4576 ?? (http://education.iloho.Purveyour/faq/LJA948) Non-HDL Cholesterol 111 <130 mg/dL (calc) [facility] Comment: For patients with diabetes plus 1 major ASCVD risk ?? factor, treating to a non-HDL-C goal of <100 mg/dL ?? (LDL-C of <70 mg/dL) is considered a therapeutic ?? option. Triglycerides 79 <150 mg/dL [facility] 11/20/2021 4:38 PM EDT us Yas Woodard NP LAB BLOOD ORDERABLES Final Resu lt [facility] [address] from Last 3 Months or Most Recently Relevant to Health Maintenance Care Teams Form Setter Helper Relationship Specialty Start Date End Date Vita Winn MD [address] [place] [id number] PCP - General Internal Medicine 12/15/22
--- OUTSIDE RECORDS SUMMARY | 2024-08-11 15:13 | XMS_ITS | Encounter Summary ---
Author Organization [employer] Address [address] [place] [address] [address] [place] [address] Care Team Providers Care Cotton Sampler Name Role Phone Vita Winn MD Primary Care Pro vider Reason for Visit * Reason Comments Med Refill Encounter Details Date Type Department Care Team ([facility] st Contact Info) Description 02/11/2023 Refill [facility] MEDICINE [address] [place] [address] Louann Toussaint FNP [address] [place], [place] [phone] Social History Tobacco Use Types Packs/Day Years Used Date Smoking Tobacco: Never Assessed Sex and Gender Information Value Date Recorded Sex Assigned at Male 03/03/2022 10:17 AM EDT Legal Sex Male 10:17 AM EDT Gender Identity Male 03/03/2022 10:17 AM EDT Sexual Orientation Straight 03/03/2022 10 :17 AM EDT documented as of this encounter Plan of Treatment Not on file documented as of this encounter Visit Diagnoses Not on filedocumented in this encounter Care Teams Cotton Sampler Relationship Specialty Start Date End Date Vita Winn MD [address] [place] [address] PCP - General Internal Medicine 12/15/22 documented as of this encounter
--- OUTSIDE RECORDS SUMMARY | 2024-08-11 15:13 | XMS_ITS | Encounter Summary ---
Author Organization [employer] Address [address] [place] [address] [place] [address] Care Team Providers Care Animal Control Specialist Name Role Phone Vita Winn MD Primary Care Pro vider Reason for Visit * Reason Comments Med Refill Encounter Details Date Type Department Care Team ([facility] st Contact Info) Description 02/08/2023 Refill [facility] MED & PEDS [address] [place], [place] [phone] Louann Toussaint FNP [address] [place] [address] Social History Tobacco Use Types Packs/Day Years [...] on filedocumented in this encounter Care Teams Animal Control Specialist Relationship Specialty Start Date End Date Vita Winn MD [address] [place] [address] PCP - General Internal Medicine 12/15/22 documented as of this encounter
--- OUTSIDE RECORDS SUMMARY | 2024-08-11 15:13 | XMS_ITS | Clinical Summary ---
Author Organization [facility] it Address [address] [place] [address] Care Team Providers Care Tower Director Name Role Phone Jaylan Lo MD Primary Care Provider [phone] Allergies Active Allergy Reactions Criticality Noted Date Comments Bee Venom Protein (Honey Bee) Rash 2009 Penicillin G Hives 01/25/2015 Medications methocarbamoL (ROBAXIN) 750 mg tablet Take 1 Tab by mouth 4 times daily. 04/23/2016 Active simvastatin (ZOCOR) 40 mg tablet TAKE 1 TAB BY MOUTH AT BEDTIME. 04/03/2016 Active folic acid (FOLVITE) 1 mg tablet TAKE 1 TAB BY MOUTH DAILY. 04/03/2016 Active lisinopriL (PRINIVIL,ZESTRI L) 10 mg tablet TAKE 1 TAB BY MOUTH DAILY. 04/03/2016 Active buPROPion XL (WELLBUTRIN XL) 150 mg 24 hr tablet Take 150 mg by mouth every morning. Active citalopram (CeleXA) 20 mg tablet Take 1 Tab by mouth daily. 03/09/2014 Active aspirin 325 mg EC tablet Take 1 Tab by mouth daily. 03/09/2014 Active MULTIVITAMIN ORAL Take 1 Tab by mouth daily. Active Active Problems Problem Noted Date Diagnosed Date Carotid stenosis 01/25/2015 Depressive disorder 05/13/2013 Cognitive impairment 04/11/2013 HTN (hypertension) 02/18/2013 Alcohol abuse 05/12/2008 Chronic back pain 05/12/2008 Hyperlipidemia 05/12/2008 Immunizations Name Administration Dates Next Due Tdap Tetanus diptheria acell ular pertussis (Boostrix; Adacel) 7yo and older 02/07/2010 Surgical History Surgery Date Site/Laterality Comments TONSILLECTOMY PROCEDURE: HISTORICAL TONSILLECTOMY COLONOSCOPY 10/02/08 PROCEDURE: MO COLONOSCOPY STOMA DX INCLUDING COLLJ SPEC SPX; COMMENT: Up to cecum, good preparation, normal colon exam Medical History Medical History Date Comments Unspecified essential hypertension DX:Unspecified essential hypertension HTN (hypertension) 02/18/2013 DX:HTN (hyper tension) Family History Medical History Relation Name Comments Diabetes Brother 1 Alcohol abuse Father Hypertension Father Diabetes Mother Blindness Neg Hx Cataracts Neg Hx Glaucoma Neg Hx Macular degeneration Neg Hx Strabismus Neg Hx Relation Name Status Comments Brother 1 Brother 2 Alive dm Father htn Mother (Age 70) dm, htn Sister 1 Alive Sister 2 Alive Social History Tobacco Use Types Packs/Day Years Used Date Smoking Tobacco: Former Cigarettes 1 42.5 0 05/04/1970 - 11/09/2012 Smokeless Tobacco: Never Alcohol Use Standard Drinks/Week Comments Yes 8.3 (1 standard drink = 0.6 oz p ure alcohol) Sex and Gender Information Value Date Recorded Sex Assigned at Not on file Legal Sex Male 1:56 AM EST Gender Identity Not on file Sexual Orientation Not on file Obstetrics History Plan of Treatment Health Maintenance Due Date Last Done Comments Pneumococcal Vaccine: 50+ Ye ars (1 of 1 - PCV) 11/15/2007 Zoster Vaccines (1 of 2) 11/15/2007 DTaP,Tdap,and Td Vaccines (2 - Td or Tdap) 02/08/2020 02/07/2010 COVID-19 Vaccine ( - 2023-2 5 season) 2024 Abdominal Aortic Aneurysm (A AA) Screen 05/03/2024 Cholesterol Screening (Lipid Panel) 05/03/2024 04/23/2016 Colorectal Cancer Screening: Colonoscopy 05/03/2024 10/02/2008 Depression Screening 05/03/2024 Falls Risk Assessment 05/03/2024 Hypertension/CHF/CAD Annual BMP Blood Test 05/03/2024 04/23/2016 Lung Cancer Screening (Low D ose CT) 05/03/2024 Social Influencers of Health Screening 05/03/2024 Influenza Vaccine (Season Ended) 2025 RSV Immunization Adult Patie nts (1 - 1-dose 75+ series) 2032 Hepatitis C Screening Completed 06/25/2013 HIB Vaccines Aged Out No longer eligi [...] on patient's age to complete this topic MMR Vaccines Aged Out No longer eligi ble based on patient's age to complete this topic Meningococcal ACWY Vaccine Aged Out N o longer eligible based on patient's age to complete this topic Meningococcal B Vaccine Aged Out No l onger eligible based on patient's age to complete this topic RSV Immunization Patients Un monse 20 months Aged Out No longer eligible b ased on patient's age to complete this topic Varicella Vaccines Aged Out No longer eligible based on patient's age to complete this topic Procedures Procedure Name Priority Date/Time Associated Diagnosis Comments ANNUAL BMP BLOOD TEST Routine 04/23/2016 LIPID PANEL Routine 04/23/2016 HEPATITIS C SCREENING Routine 06/25/2013 COLONOSCOPY Routine 10/02/2008 from Last 3 Months or Most Recently Relevant to Health Maintenance Results * Annual BMP Blood Test (04/23/2016) [facility] Annual BMP Blood Test abstracted Result [facility] Provider HEALTH MAINTENANCE Final Result * (ABNORMAL) Lipid panel (04/23/2016) [facility] LDL/HDL Ratio 3 0 - 4 Triglycerides 102 0 - 150 mg/dL Cholesterol 190 0 - 200 mg/dL HDL 58 >=40 mg/dL LDL Cholesterol 112(A) 0 - 100 mg/dL Blood Venous blood specimen / Unknown [facility] Provider LAB BLOOD ORDERABLES Jada l Result * Hepatitis C Screening (06/25/2013) [facility] Hepatitis C Screening abstracted [facility] Provider HEALTH MAINTENANCE Final Result * Colonoscopy (10/02/2008) [facility] Colonoscopy abstracted, no interpretation Anatomical Region Laterality Modality Other us Historical Provider HEALTH MAINTENANCE Final Result from Last 3 Months or Most Recently Relevant to Health Maintenance Care Teams Tower Director Relationship Specialty Start Date End Date Jaylan Lo MD PCP - General Internal Medicine 11/17/14
== END 2024-08-11 13:29 | disposition home or self-care (01) ==
LOC: HO.HGI 12:44
PROVIDERS: PCP Physician Assistant; Visit Provider Nurse Practitioner
DX: Z01.818 Encounter for other preprocedural examination (principal); Z12.11 Encounter for screening for malignant neoplasm of colon
CPT/HCPCS: 99024

== ENCOUNTER → 2024-08-11 12:44 | Outpatient (BNVA) | payer MEDICARE, SELFPAY | PROVIDERS: PCP Physician Assistant; Visit Provider Nurse Practitioner | DX: Z01.818 Encounter for other preprocedural examination (principal) | CPT/HCPCS: 99212 ==

== ENCOUNTER 2025-03-20 14:18 | Outpatient (AMB) | payer OTHER, MEDICAID, SELFPAY ==
--- NOTE | 2025-03-20 15:04 | MHC.PC.OV ---
Vital Signs 03/20/25 15:06 Height 5 ft 6 in Weight 166 lb 2 oz BMI 26.8 BP 120/62 Blood Pressure Location Lt brachial Position Sitting Pulse 68 Pulse Source Pulse Oximeter Temp 97.3 F Temp Source Temporal Artery Scan Pulse Oximetry (%) 98 Oxygen Delivery Method Room Air Intake Visit Reasons: Annual Exam Intake Note: Patient is here today for a physical. Casing Runner Required: No Library Manager: Not Required per policy Accompanied by: Self / Same As Patient Allergies Penicillins Allergy (Severe, Verified 03/20/25 15:23) Hives Medication List - Last Reconciled 03/20/25 by Santy Fernandez PA-C amlodipine 2.5 mg PO DAILY 90 days aspirin (Adult Aspirin Regimen) 81 mg PO DAILY 90 days atorvastatin 80 mg PO DAILY 90 days bupropion HCl XL 300 mg PO DAILY 90 days citalopram 40 mg PO DAILY 90 days cyclobenzaprine 10 mg PO TID PRN diclofenac sodium 75 mg PO BID PRN 10 days finasteride 5 mg PO DAILY folic acid 1 mg PO QAM 90 days lisinopril 10 mg PO DAILY 90 days sodium,potassium,mag sulfates 17.5-3.13-1.6 gram (Suprep Bowel Prep Kit) 480 mL orally; FOR COLONOSCOPY PREP tamsulosin 0.4 mg PO DAILY 90 days Tobacco use date assessed: 03/20/25 Fall risk assessment: No Falls in past year Last assessed Fall Risk: 03/20/25 Dental Screening Dental Screen Date: 03/20/25 Did you have a dental visit in the last 12 months?: No Did you have a dental problem in the last 6 months where you did not have access to dental care?: No Was dental information given to patient?: No HPI Annual Exam HPI Details Patient is a 69-year-old male here today for a follow-up visit. Patient has a past medical history significant for hyperlipidemia, hypertension, anxiety depression, BPH, CVA ( 2012), PAD. Concern--> He presents with a skin lesion on his back, describing it initially as a small pimple that was accidentally scratched off and then recurred. The lesion is pruritic, and he has been scratching it. Right shoulder tendinopathy/osteoarthritis: continues to have right shoulder pain and limited range of motion. He reports a traumatic fall in 2020 landing on his right shoulder. He did do chiropractics and physical therapy at that time. MRI of right shoulder in 2020 showing--> . Severe glenohumeral osteoarthritis. 2. Small 6 x 4 mm insertional partial tear of the subscapularis tendon with mild associated tendinosis. Mild supraspinatus tendinosis. No additional rotator cuff tears. He wonders about returning back to orthopedics for another cortisone injection which has helped him in the past Patient has gone an did plasma injections though have not been effective. He is interested in returning back to orthopedic for further evaluation and possible cortisone injection. .. CVA: Had a stroke in 2012, has been on high potency statin and aspirin since. Has neurology follow-up with this time. Does not have any more in deficits besides his memory issues. .. Hypertension: Patient's blood pressure acceptable today in office. He reports he has been under lot of stress lately due to his son living with him in his household.. Continues on amlodipine 2.5 mg and lisinopril 10 mg which has been effective for his blood pressure management. .. Alcohol use disorder: He does understand somewhat that he drinks excessively. He has report having 5-6 beers per day. .. Anxiety/ anger issue: He continues with use of bupropion and citalopram and as needed hydroxyzine for anxiety and agitation. He is not interested in speaking with a mental health therapist colon cancer screening : Has an upcoming colonoscopy VAccine:declines FLu vaccine, UTD with COVID, UTD with td, NEed [id number] today [facility] Medical History (Updated 03/21/25 @ 07:53 by Santy Fernandez PA-C) SANGITA (generalized anxiety disorder) Alcohol use disorder CVA (cerebral vascular accident) BPH (benign prostatic hyperplasia) Right SNHL MDD (major depressive disorder), recurrent episode, moderate HTN (hypertension) Muscle spasm Surgical History History of tonsillectomy History of testicular surgery H/O colonoscopy Family History Family/Other Cancer Mother Stroke Diabetes Social History Housing: House Alcohol intake: current Alcohol intake frequency: 3 or more drinks per day Alcohol type: beer Patient Tobacco Use Status: Former Tobacco user Tobacco use type: Cigarette e-Cigarette/Vaping Use: Never Used Second Hand Smoke Exposure: Yes Substance Use Type: Marijuana service: No Current occupational status: retired and disabled 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 Pt saw hearing evaluation already. ) Vision needs: No Questionnaire PHQ-9 Over the last 2 weeks, how often have you been bothered by any of the following problems? 1. Little interest or pleasure in doing things: nearly every day 2. Feeling down, depressed, or hopeless: nearly every day 3. Trouble falling or staying asleep, or sleeping too much: nearly every day 4. Feeling tired or having little energy: more than half the days 5. Poor appetite or overeating: more than half the days 6. Feeling bad about yourself - or that you are a failure or have let yourself or your family down: several days 7. Trouble concentrating on things, such as reading the newspaper or watching television: not at all 8. Moving or speaking so slowly that other people could have noticed. Or the opposite - being so fidgety or restless that you have been moving around a lot more than usual: several days 9. Thoughts that you would be better off or of hurting yourself in some way: more than half the days Total score: 17 Depression Screening Interpretation: Positive Depression Screening Follow-up: Existing condition and Declines treatment Depression Screening Done: Yes 46385 - PHQ-9 Billing: Yes Source: Developed by Drs. Devin Shah, Katherin Goldman, Daquan Beyer and colleagues, with an educational sander from [employer]. Thrive Questionnaire Date Thrive assessed: 03/20/25 I am a: Patient What is your living situation today?: I have a steady place to live Within the past 12 months, did the food you bought not last and you didn't have the money to get more?: I choose not to answer this question Within the past 12 months, did you worry whether your food would run out before you got money to buy more?: I choose not to answer this question Do you have trouble paying for medicines?: I choose not to answer this question Do you have trouble getting transportation to medical appointments?: No Do you have trouble paying your heating and electricity bill?: I choose not to answer this question Do you have trouble taking care of your child, family member or friend?: I choose not to answer this question Do you have trouble with day-to-day activities such as bathing, preparing meals, shopping, managing finances, etc.?: No Are you currently unemployed and looking for a job?: No Are you interested in more education?: I choose not to answer this question Please select the resources that you would like help with: None Currently or been in a relationship where the following occur: I choose not to answer THRIVE Score: 0 AUDIT C Alcohol Use Questionnaire (AUDIT-C) 1. How often do you have a drink containing alcohol?: 2-4 times a month 2. How many drinks containing alcohol do you have on a typical day when you are drinking?: 1 or 2 3. How often do you have six or more drinks on one occasion?: Never Total Score: 2 SANGITA-7 AMB Questionnaire SANGITA-7 Date SANGITA - 7 assessed: 03/20/25 Feeling nervous, anxious, or on edge: 3 = Nearly every day Not being able to stop or control worryin = Nearly every day Worrying too much about different things: 3 = Nearly every day Trouble relaxin = Nearly every day Being so restless that it is hard to sit still: 1 = Several days Becoming easily annoyed or irritable: 3 = Nearly every day Feeling afraid as if something awful might happen: 0 = Not at all Total SANGITA-7 score (0-4 normal; 5-9 mild; 10-14 moderate; 15-21 severe): 16 Source: Developed by Drs. Devin Shah, Katherin Goldman, Daquan Beyer and colleagues, with an educational sander from [employer]. SANGITA-7 Assessment Billing SANGITA-7 Assessment Tool: SANGITA-7 Assessment 78402 Review of Systems Const Denies body aches, Denies chills, Denies excessive sweating, Denies fatigue, Denies fever(s) and Denies headache(s) Eyes Denies blurry vision ENT Denies dysphagia, Denies vertigo, Denies dizziness, Denies headache(s), Denies hearing loss and Denies tinnitus Card Denies chest pain, Denies chest pain with activity, Denies syncope, Denies irregular heart rhythm and Denies dyspnea Resp Denies chest congestion, Denies cough, Denies hemoptysis, Denies dyspnea and Denies wheezing GI Denies abdominal pain, Denies melena, Denies hematochezia, Denies coffee ground emesis, Denies dysphagia, Denies diarrhea, Denies nausea and Denies vomiting Denies difficulty urinating, Denies dysuria, Denies urinary frequency, Denies urinary hesitancy and Denies urinary urgency Musc Denies arthralgias, Denies limited range of motion, Denies muscle cramps and Denies muscle weakness Skin/Breast Denies rash and Denies skin ulcer Neuro Denies Abnormal speech present, Denies confusion, Denies vertigo, Denies dizziness, Denies syncope, Denies headache(s), Denies memory loss and Denies seizure-like activity Psych Denies anxiety, Denies confusion, Denies depression, Denies memory loss, Denies panic attacks and Denies paranoia Endo Denies excessive sweating, Denies fatigue, Denies flushing, Denies polydipsia and Denies polyuria Aller/Immun Denies wheezing Physical exam (Primary Care) Vital Signs: Last Vital Signs Temp 97.3 F 03/20/25 15:06 Pulse 68 03/20/25 15:06 BP 120/62 03/20/25 15:06 Pulse Ox 98 03/20/25 15:06 Oxygen Delivery Method Room Air 03/20/25 15:06 BMI result Body Mass Index 26.8 Tobacco/Smoking Status: Tobacco use Status Tobacco use date assessed 03/20/25 03/20/25 15:13 Patient Tobacco Use Status Former Tobacco user 03/20/25 15:13 Tobacco use type Cigarette 03/20/25 15:13 e-Cigarette/Vaping Use Never Used 03/20/25 15:13 PHQ-9: PHQ-9 Score PHQ-9: Total score 17 03/20/25 15:23 Depression Screening Interpretation: Positive Depression Screening Follow-up: Existing condition and Declines treatment Thrive Assessment: Date of Thrive Assessment Date Thrive assessed 03/20/25 03/20/25 15:13 Currently or been in a relationship where the following occur: I choose not to answer Const General: cooperative, comfortable, no acute distress, alert and awake; No confusion Orientation/consciousness: oriented to person, oriented to place, patient oriented x3 and No confusion HENMT Head: Yes normocephalic Ears: external ears normal and TM's normal bilaterally Face and sinus: No sinus tenderness Mouth: Normal oral and palatal mucosa present and tongue normal Teeth and gingiva: dentition normal and gingiva normal Throat: Yes posterior oropharynx normal, Yes tonsils normal and Yes uvula midline Eyes Conjunctivae: conjunctivae normal Sclerae: sclerae normal Pupils: Equal, round and reactive pupils present EOM: EOMs intact bilaterally Direct Ophthalmoscopy: No no photophobia Neck Neck: Yes no lymphadenopathy, No tender and Yes no JVD Thyroid: Thyroid normal Carotids: no bruits Chest Chest palpation & inspection: no tenderness Resp Effort & Inspection: normal respiratory effort, no audible wheezes, not labored and no stridor Auscultation: no crackles, no rales, no rhonchi and no wheezes Cardio Jugular venous distension: no JVD Rate: regular rate, not bradycardic and not tachycardic Rhythm: regular rhythm Bruits: no carotid bruits Peripheral pulses: Peripheral pulses 2+ throughout GI Inspection: Yes normal to inspection, No abdominal wall ecchymosis and No visible herniation Palpation (GI): Soft to palpation, nontender, no guarding, not rigid and No hepatosplenomegaly present Auscultation: normoactive bowel sounds General: Yes no CVA tenderness Back/Spine/Pelvis Back: no CVA tenderness and No back tenderness Cervical Spine: cervical ROM normal Thoracic/Lumbar Spine: thoracic and lumbar spine normal to inspection, straight leg raise negative bilaterally, No thoraco-lumbar ROM limited and No lumbar spinal tenderness Skin Lesions: no lesions Rashes: no rashes Wounds: no wounds Neuro General: oriented to person, oriented to place, patient oriented x3, CN's II-XI intact bilaterally and No confusion Cranial nerves: Yes Equal, round and reactive pupils present and Yes Normal accommodation reflex present Cognition (Neuro): normal cognition Speech: No Abnormal speech present Gait exam (Neuro): Normal gait present Motor exam (neuro): 5/5 motor strength present throughout Extrem Right upper extremity: full ROM; no cyanosis Left upper extremity: full ROM; no cyanosis Right lower extremity: no edema Left lower extremity: no edema Psych Appearance: grossly normal Mental Status: mental status grossly normal Affect: normal affect Attitude: cooperative Thought process: Normal thought process present Coding Level of Care Code Est Pt Prev Care >65y(25443) Diagnoses Annual physical exam Z00.00 Cerebrovascular accident (CVA) due to embolism of precerebral artery I63.10 CVA mechanism: embolism Precerebral and cerebral artery: unspecified precerebral artery Primary hypertension I10 Hypertension type: primary hypertension MDD (major depressive disorder), recurrent episode, moderate F33.1 Chronic right shoulder pain M25.511; G89.29 Chronicity: chronic Skin lesion of back L98.9 Alcohol use disorder F10.90 SANGITA (generalized anxiety disorder) F41.1 Additional Codes SANGITA-7 Assessment Billing - SANGITA-7 Assessment Tool: SANGITA-7 Assessment 93397 ([id number]) PHQ-9 - 58086 - PHQ-9 Billing: Yes ([id number]) Assessment & Plan Assessment & Plan (1) Annual physical exam: Code(s): Z00.00 - Encounter for general adult medical examination without abnormal findings Category: Medical Plan: As per HPI (2) CVA (cerebral vascular accident): Comment: Stroke in 2013 Code(s): I63.9 - Cerebral infarction, unspecified Category: Medical Qualifiers: CVA mechanism: embolism Precerebral and cerebral artery: unspecified precerebral artery Qualified Code(s): I63.10 - Cerebral infarction due to embolism of unspecified precerebral artery Plan: Patient continues on baby aspirin, high-dose statin therapy in antihypertensive medication. (3) HTN (hypertension): Code(s): I10 - Essential (primary) hypertension Category: Medical Qualifiers: Hypertension type: primary hypertension Qualified Code(s): I10 - Essential (primary) hypertension Plan: Patient's blood pressure acceptable today in office. He continues amlodipine and lisinopril. has been a bit stress today due to check in process. Blood pressure usually WNL (4) MDD (major depressive disorder), recurrent episode, moderate: Code(s): F33.1 - Major depressive disorder, recurrent, moderate Category: Medical Plan: Patient's PHQ-9 score 0. He continues with mental health medications that are helpful. (5) Right shoulder pain: Code(s): M25.511 - Pain in right shoulder Category: Medical Qualifiers: Chronicity: chronic Qualified Code(s): M25.511 - Pain in right shoulder; G89.29 - Other chronic pain Plan: For the chronic shoulder pain, a referral will be placed to orthopedics (Dr. Gunter) for re-evaluation. The patient is considering surgical options over another cortisone injection (6) Skin lesion of back: Code(s): L98.9 - Disorder of the skin and subcutaneous tissue, unspecified Category: Medical Plan: Regarding the skin lesion on the back, which is suspected to be an actinic keratosis, the patient was reassured it does not appear to be cancerous. A referral will be sent to a general surgeon in [place] for excision, per the patient's preference to stay local. For symptomatic relief of pruritus, the patient was advised to use [id number] hydrocortisone 10 cream. (7) Alcohol use disorder: Code(s): F10.90 - Alcohol use, unspecified, uncomplicated Category: Medical Plan: Patient continues to drink 5-6 beers per day which he reports helps him with his mental health in his pain. We did discuss the excessive nature of this and he does understand though was not willing to quit or cut down at this time. (8) SANGITA (generalized anxiety disorder): Code(s): F41.1 - Generalized anxiety disorder Category: Medical Plan: Patient's SANGITA-7 score positive for anxiety which has been existing condition for him. He reports he has been a bit more stressed and anxious due to his son living with him at home. He continues with Wellbutrin and highest dose of citalopram. He is not interested in mental health therapy at this time. It seems he does use alcohol for his mental health Orders: Orders Comprehensive [place]. Panel Fast 03/20/25 I10 - Essential (primary) hypertension, I63.10 - Cerebral infarction due to embolism of unspecified precerebral artery Lipid Panel 03/20/25 I10 - Essential (primary) hypertension, I63.10 - Cerebral infarction due to embolism of unspecified precerebral artery Complete Blood Count no Diff 03/20/25 I10 - Essential (primary) hypertension, I63.10 - Cerebral infarction due to embolism of unspecified precerebral artery Prostate Specific Antigen Scr 03/20/25 I10 - Essential (primary) hypertension, I63.10 - Cerebral infarction due to embolism of unspecified precerebral artery, Z12.5 - Encounter for screening for malignant neoplasm of prostate Microalbumin, Random (w Creat) 03/20/25 I10 - Essential (primary) hypertension, I63.10 - Cerebral infarction due to embolism of unspecified precerebral artery Referrals Orthopedics Referral M77.8 - Other enthesopathies, not elsewhere classified Patient Instructions: Goal: Blood pressure to be below 140/90 Barrier: Adherence to physical activity and healthy eating habits
[2025-03-20 15:06] VITALS: BP 120/62; PULSE 68; TEMP 36.3; O2SAT 98; BMI 26.8
== END 2025-03-20 15:47 | disposition home or self-care (01) ==
LOC: HO.HMCH 14:18
PROVIDERS: PCP Physician Assistant; Visit Provider Physician Assistant
DX: Z00.00 Encounter for general adult medical examination without abnormal findings (principal); I63.10 Cerebral infarction due to embolism of unspecified precerebral artery; I10 Essential (primary) hypertension; F33.1 Major depressive disorder, recurrent, moderate; M25.511 Pain in right shoulder; G89.29 Other chronic pain; L98.9 Disorder of the skin and subcutaneous tissue, unspecified; F10.90 Alcohol use, unspecified, uncomplicated; F41.1 Generalized anxiety disorder

== ENCOUNTER → 2025-03-20 14:18 | Outpatient (BNVA) | payer OTHER, MEDICAID, SELFPAY | PROVIDERS: PCP Physician Assistant; Visit Provider Physician Assistant | DX: Z00.00 Encounter for general adult medical examination without abnormal findings (principal); I10 Essential (primary) hypertension; E78.5 Hyperlipidemia, unspecified; M25.511 Pain in right shoulder; F10.90 Alcohol use, unspecified, uncomplicated; R45.1 Restlessness and agitation; F33.1 Major depressive disorder, recurrent, moderate; G89.29 Other chronic pain; L98.9 Disorder of the skin and subcutaneous tissue, unspecified; F41.1 Generalized anxiety disorder; Z91.81 History of falling; Z86.73 Personal history of transient ischemic attack (TIA), and cerebral infarction without residual deficits | CPT/HCPCS: 96127 ==

== ENCOUNTER 2025-03-21 09:58 | Outpatient (REF) | payer OTHER, MEDICAID, SELFPAY ==
[2025-03-21 13:45] LABS: Hematocrit 41.3 % (42.0-52.0); Hemoglobin 13.6 g/dl (14.0-18.0); Mean Corpuscular HGB Conc 32.9 g/dl (31.0-36.0); Mean Corpuscular Hemoglobin 31.9 pg (27.0-33.0); Mean Corpuscular Volume 96.7 fL (80.0-98.0); NRBC Abs Auto 0.000 X10*3/uL (0.0-0.012); NRBC Pct Auto 0.0 /100WBC (0.0-0.2); Platelet Count 281 X10*3/uL (160-400); Red Blood Count 4.27 X10*6/uL (4.60-5.80); White Blood Count 6.5 X10*3/uL (4.8-10.8)
[2025-03-21 14:13] LABS: Alanine Aminotransferase 19 U/L (0-40); Albumin Level 4.5 g/dL (3.5-5.0); Alkaline Phosphatase 58 U/L (39-117); Anion Gap 12 (12-20); Aspartate Amino Transferase 22 U/L (5-37); Blood Urea Nitrogen 15 mg/dL (9-16); Calcium 9.2 mg/dL (8.4-10.2); Carbon Dioxide 27 mmol/L (22-29); Chloride 107 mmol/L (96-108); Cholesterol 166 mg/dL (<200); Estimated Glomerular Filt Rate 60; HDL Cholesterol 57 mg/dL (>40); Potassium 4.0 mmol/L (3.3-5.1); Sodium 142 mmol/L (135-145); Total Protein 7.0 g/dL (6.5-8.0); Triglycerides 89 mg/dL (<150)
[2025-03-21 14:22] LABS: Microalbum/Creatinine Ratio Ur 3.3 ug/mg cr (<30)
== END 2025-03-21 09:59 | disposition home or self-care (01) ==
LOC: HO.HMGCLDS 09:58
PROVIDERS: PCP Physician Assistant; Visit Provider Physician Assistant
DX: Z12.5 Encounter for screening for malignant neoplasm of prostate (principal); I10 Essential (primary) hypertension; I63.10 Cerebral infarction due to embolism of unspecified precerebral artery
CPT/HCPCS: 36415; 80053; 80061; 82043; 82570; 84153; 85027

== ENCOUNTER 2025-03-22 07:48 | Day surgery (SDC) | payer MEDICARE, OTHER, SELFPAY ==
--- OUTSIDE RECORDS SUMMARY | 2025-02-27 15:52 | XMS_ITS | Clinical Summary ---
Author Organization [employer] Address [address] [facility] 7 [place] [address] Care Team Providers Care Video Operator Name Role Phone Unavailable Primary Care Provider Unavailabl e Medications citalopram (CeleXA) 40 MG tablet take [...] hypertension 08/28/2016 Mild cognitive disorder 08/28/2016 Immunizations Immunization Administration Dates Next Due Moderna Covid-19 Vaccine [...] FIT DNA/Cologuard 1957 FIT 1957 FOBT 1957 SDOH Screening 1957 Sigmoidoscopy 1957 Alcohol/Substance Use Screening 1969 Tobacco Screening 1969 Hepatitis C Screening 11/15/1975 Pneumococcal Vaccine: 50+ Years (1 of 1 - PCV) 11/15/2007 COVID-19 Vaccine (4 - 2024-2 6 season) 2025 05/08/2021, 09/12/2020, 08/15/2020 Influenza Vaccine (#1) 2025 Lipid Panel 11/20/2026 11/20/2021, 05/02/2020 DTaP/Tdap/Td Vaccines [...] PM EDT) Chol/HDLC Ratio 2.6 <5.0 (calc) [facility] Cholesterol, Total 180 <200 mg/dL [facility] HDL Cholesterol 69 > OR = 40 mg/dL [facility] LDL Cholesterol 94 mg/dL (calc) [facility] Comment: Reference range: <100 Desirable range <100 mg/dL for primary prevention; <70 mg/dL for patients with CHD or diabetic patients with > or = 2 CHD risk factors. LDL-C is now calculated using the Neo-Hedrick calculation, which is a validated novel method providing better accuracy than the Friedewald equation in the estimation of LDL-C. Neo SS et al. YOKO. 2013;310(19): 5892-4207 (http://education.[employer]rapeutics.Ezetap/faq/EPG035) Non-HDL Cholesterol 111 <130 mg/dL (calc) [facility] Comment: For patients with diabetes plus 1 major ASCVD risk factor, treating to a non-HDL-C goal of <100 mg/dL (LDL-C of <70 mg/dL) is considered a therapeutic option. Triglycerides 79 <150 mg/dL [facility] 11/20/2021 4:38 PM EDT us Yas Woodard NP LAB BLOOD ORDERABLES Final Resu lt [facility] [address] from Last 3 Months or Most Recently Relevant to Health Maintenance Insurance [facility]
--- OUTSIDE RECORDS SUMMARY | 2025-02-27 15:52 | XMS_ITS | Encounter Summary ---
Author Organization [employer] Address [address] [place] [address] Care Team Providers Care Processing Technician Name Role Phone Vita Winn MD Primary Care Pro vider Reason for Visit * Reason Comments Med Refill Encounter Details Date Type Department Care Team ([facility] st Contact Info) Description 02/11/2023 Refill [facility] MEDICINE [address] [place] [address] Louann Toussaint FNP [address] [place], [place] [phone] Social History Tobacco Use Types Packs/Day Years [...] on filedocumented in this encounter Care Teams Processing Technician Relationship Specialty Start Date End Date Vita Winn MD [address] [place] [address] PCP - General Internal Medicine 12/15/22 08/31/24 documented as of this encounter
--- OUTSIDE RECORDS SUMMARY | 2025-02-27 15:52 | XMS_ITS | Encounter Summary ---
Author Organization [employer] Address [address] [place] [address] Care Team Providers Care [employer] Social Studies Tutor Name Role Phone Vita Winn MD Primary Care Pro vider Reason for Visit * Reason Comments Med Refill Encounter Details Date Type Department Care Team ([facility] st Contact Info) Description 02/08/2023 Refill [facility] CH[facility] MED & PEDS [address] [place], [place] [phone] Louann Toussaint FNP [address] [place] [address] Social History Tobacco Use Types Packs/Day Years [...] on filedocumented in this encounter Care Teams [employer] Social Studies Tutor Relationship Specialty Start Date End Date Vita Winn MD [address] [place] [address] PCP - General Internal Medicine 12/15/22 08/31/24 documented as of this encounter
--- OUTSIDE RECORDS SUMMARY | 2025-02-27 15:52 | XMS_ITS | Clinical Summary ---
Author Organization [facility] ity Address [address] [place] [address] Care Team Providers Care In Mold Coater Name Role Phone Jaylan Lo MD Primary Care Provider [phone] Allergies Active Allergy Reactions Criticality Noted Date [...] Chronic back pain 05/12/2008 Hyperlipidemia 05/12/2008 Immunizations Immunization Administration Dates Next Due Tdap Tetanus diptheria acell ular pertussis (Boostrix; Adacel) 7yo and older 02/07/2010 Surgical History Surgery Date Site/Laterality Comments TONSILLECTOMY PROCEDURE: HISTORICAL TONSILLECTOMY COLONOSCOPY 10/02/08 PROCEDURE: DC COLONOSCOPY STOMA DX INCLUDING COLLJ SPEC SPX; [...] Health Maintenance Due Date Last Done Comments Hepatitis A Vaccines (1 of 2 - Risk 2-dose series) 1976 Pneumococcal Vaccine: 50+ Ye ars (1 of 1 - PCV) 11/15/2007 Zoster Vaccines (1 of 2) 11/15/2007 Colorectal Cancer Screening: Colonoscopy 10/02/2018 10/02/2008 DTaP,Tdap,and Td Vaccines (2 - Td or Tdap) 02/08/2020 02/07/2010 Abdominal Aortic Aneurysm (A AA) Screen 05/03/2024 Cholesterol Screening (Lipid Panel) 05/03/2024 04/23/2016 Falls Risk Assessment 05/03/2024 Hypertension/CHF/CAD Annual BMP Blood Test 05/03/2024 04/23/2016 Lung Cancer Screening (Low D ose CT) 05/03/2024 Social Influencers of Health Screening 05/03/2024 Depression Screening 05/04/2024 COVID-19 Vaccine ( - 2023-2 5 season) 2025 Influenza Vaccine (#1) 2025 RSV Immunization Adult Patie nts (1 [...] Results * Annual BMP Blood Test (04/23/2016) [facility] Annual BMP Blood Test abstracted Result [facility] Provider HEALTH MAINTENANCE Final Result * (ABNORMAL) Lipid panel (04/23/2016) [facility] LDL/HDL Ratio 3 0 - 4 Triglycerides 102 0 - 150 mg/dL Cholesterol 190 0 - 200 mg/dL HDL 58 >=40 mg/dL LDL Cholesterol 112(A) 0 - 100 mg/dL Blood Venous blood specimen / Unknown [facility] Provider LAB BLOOD ORDERABLES Jada l Result * Hepatitis C Screening (06/25/2013) [facility] Hepatitis C Screening abstracted Result [facility] Provider HEALTH MAINTENANCE Final Result * Colonoscopy (10/02/2008) [facility] Colonoscopy abstracted, no interpretation Anatomical Region Laterality Modality Other [facility] Provider HEALTH MAINTENANCE Final Result from Last 3 Months or Most Recently Relevant to Health Maintenance Care Teams In Mold Coater Relationship Specialty Start Date End Date Jaylan Lo MD PCP - General Internal Medicine 11/17/14
[2025-03-20 14:43] VITALS: BMI 27.4
[2025-03-22 08:03] VITALS: BMI 26.2
[2025-03-22 08:19] VITALS: BP 140/71; PULSE 67; RESP 16; TEMP 36.6; O2SAT 99
[2025-03-22] MEDS: Lactated Ringers 1,000 ML 100 ML IVCONT (08:19)
--- NOTE | 2025-03-22 08:31 | MHC.SHP ---
Pre-Procedural Eval Section A - 24 Hr Update-Section A only Date of Service: 03/22/25 Section B - Complete if H&P > 30 days Chief Complaint: screening Relevant Family History (Specify if Yes): No Relevant Social History: Other (specify) Present Medications: see Short Stay Collaborative assessment Medical History: Significant History (Alcohol use disorder Hypertension History of CVA Right shoulder tendinitis BPH Depression with anxiety ) History of Previous Operations: Relevant previous surgery/procedure and date(s) (Testicular surgery Tonsillectomy) Allergies: Allergies Allergy/AdvReac Type Severity Reaction Status Date / Time Penicillins Allergy Severe Hives Verified 03/20/25 15:23 Review of Systems Sugical H&P ROS: Negative: Constitution, Cardiovascular, Respiratory, Neurological, Psychiatric, Hem-Onc, Allergic/Immunologic, Gastrointestinal, Genitourinary, Musculoskeletal, Integumentary, Endocrine and Eyes/Ears/Nose/Throat Exam Surgical H&P Exam: Normal: HEENT, Normal: Heart, Normal: Lungs, Normal: Extremities, Normal: Abdomen, Normal: Skin and Normal: Neurological Plan Diagnosis/Plan: Unchanged I have reviewed the history and physical and performed a pertinent physical examination on my patient. No changes have occurred unless specified. Time Spent With Patient Time: Total time managing care of this patient today ____ minutes.
--- NOTE | 2025-03-22 08:34 | P.CONAN_ITS ---
Documented by User: Katelynn Rollins NP 03/20/25 10:23 HPI - Anesthesia Eval Consult details Narrative: 69yo M for Colonoscopy CVA 2013: no deficits Daily ETOH: 5-6 beers per PCP eval PMFSH Active Problems Active Problems: All Active Problems Pre-op examination (Acute) Annual physical exam (Acute) Colon cancer screening (Acute) Right shoulder pain (Acute) Screening PSA (prostate specific antigen) (Acute) Arthritis of right shoulder region (Acute) MDD (major depressive disorder), recurrent episode, moderate (Acute) Right rotator cuff tear (Acute) Epididymal cyst (Acute) Urinary frequency (Acute) SANGITA (generalized anxiety disorder) (Acute) Right SNHL (Acute) Alcohol use disorder (Acute) Right shoulder tendonitis (Acute) Testicular cyst (Acute) BPH (benign prostatic hyperplasia) (Acute) HTN (hypertension) (Acute) CVA (cerebral vascular accident) (Acute) Past Medical History Medical History SANGITA (generalized anxiety disorder) Alcohol use disorder CVA (cerebral vascular accident) BPH (benign prostatic hyperplasia) Right SNHL MDD (major depressive disorder), recurrent episode, moderate HTN (hypertension) Muscle spasm Family History Family History Family/Other Cancer Mother Stroke Diabetes Surgical History Surgical History History of tonsillectomy History of testicular surgery H/O colonoscopy Social History Social History Housing: House Alcohol intake: current Alcohol intake frequency: 3 or more drinks per day Alcohol type: beer Patient Tobacco Use Status: Former Tobacco user Tobacco use type: Cigarette e-Cigarette/Vaping Use: Never Used Second Hand Smoke Exposure: Yes Use of substances other than those prescribed or required for medical reasons: Yes Substance Use Type: Marijuana Substance Use Frequency: Daily Advance Directives: No Advance Directives Information Provided: Yes service: No Current occupational status: retired and disabled 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 Pt saw hearing evaluation already. ) Vision needs: No Meds Allergies Allergy/AdvReac Type Severity Reaction Status Date / Time Penicillins Allergy Severe Hives Verified 03/20/25 15:23 Home Medications ?Medication ?Instructions ?Recorded ?Confirmed ?Last Taken ?Type cyclobenzaprine 10 mg tablet 10 mg PO TID PRN Muscle S pasm 01/13/23 03/20/25 Unknown History Assessment and Plan Assessment Anesthesia Assessment: Chart Reviewed Documented by User: Kylee Schultz DO 03/22/25 08:36 PMFSH Past Medical History Medical History SANGITA (generalized anxiety disorder) Alcohol use disorder CVA (cerebral vascular accident) BPH (benign prostatic hyperplasia) Right SNHL MDD (major depressive disorder), recurrent episode, moderate HTN (hypertension) Muscle spasm Family History Family History Family/Other Cancer Mother Stroke Diabetes Family history of problems with anesthesia: No Surgical History Surgical History History of tonsillectomy History of testicular surgery H/O colonoscopy History of Problems with Anesthesia: No Social History Social History Housing: House Alcohol intake: current Alcohol intake frequency: 3 or more drinks per day Alcohol type: beer Patient Tobacco Use Status: Former Tobacco user Tobacco use type: Cigarette e-Cigarette/Vaping Use: Never Used Second Hand Smoke Exposure: Yes Use of substances other than those prescribed or required for medical reasons: Yes Substance Use Type: Marijuana Substance Use Frequency: Daily Advance Directives: No Advance Directives Information Provided: Yes service: No Current occupational status: retired and disabled 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 Pt saw hearing evaluation already. ) Vision needs: No Meds Allergies Allergy/AdvReac Type Severity Reaction Status Date / Time Penicillins Allergy Severe Hives Verified 03/20/25 15:23 Home Medications ?Medication ?Instructions ?Recorded ?Confirmed ?Last Taken ?Type cyclobenzaprine 10 mg tablet 10 mg PO TID PRN Muscle S pasm 01/13/23 03/20/25 Unknown History Exam Exam Date and Time: 03/22/25 0830 Height,Weight and Vital Signs: Height 5 ft 6 in Weight 73.5 kg Vital Signs Temperature 98 F 03/22/25 08:19 Pulse Rate 67 03/22/25 08:19 Respiratory Rate 16 03/22/25 08:19 Blood Pressure 140/71 H 03/22/25 08:19 Pulse Oximetry 99 03/22/25 08:19 Oxygen Delivery Method Room Air 03/22/25 08:19 Temperature 98 F 03/22/25 08:19 Pulse Rate 67 03/22/25 08:19 Respiratory Rate 16 03/22/25 08:19 Blood Pressure 140/71 H 03/22/25 08:19 Pulse Oximetry 99 03/22/25 08:19 Oxygen Delivery Method Room Air 03/22/25 08:19 Airway Mallampati Class: I TM Dist: >3cm Neck ROM: Full Loose/Missing/Broken Teeth: Yes (edentulous - upper jaw; poor dentition lower jaw) Heart: S1S2 Lungs: CTAB Assessment and Plan Assessment Anesthesia Assessment: Anesthesia Plan Discussed and Chart Reviewed Final Anesthetic Review Family History of Problems with Anesthesia: No History of Problems with Anesthesia: No NPO: Yes ASA Class: III Final Preanesthetic Review: No Changes in Pt Med Stat, Meds/Allgs Chart Reviewed, Consent Obtained/Reviewed and Anes Risks/Benef Reviewed Patient Risk: Low Procedure Risk: Low Anesthetic Plan Anesthetic Plan: MAC: and Agree w/ Assess. and Plan Disposition: Standard PACU
--- NOTE | 2025-03-22 09:10 | P.OPN-COLO_ITS ---
Colonoscopy Operative Note Operative Note Date of Service: 03/22/25 Narrative: Operative Information Procedure Description: Colonoscopy Indication: Screening Anesthesia: MAC COLONOSCOPY Instrument: Olympus variable stiffness pediatric scope 190L Colonoscopy Monitoring: Vital signs and clinical assessment, continuous EKG monitoring, Pulse oximetry, Carbon Dioxide monitoring and blood pressure monitoring were done throughout the procedure. Colon withdrawal time was 19 minutes. Procedure: The patient was placed in the left lateral decubitis position and pre-procedure medications were administered. After a digital rectal examination of the ano-rectum, the video colonoscope was inserted into the rectum and advanced through the colon to the cecum/TI. The colonoscope was slowly withdrawn in a retrograde panoramic fashion and the colon mucosa was carefully examined including a retroflexed view of the rectum. Findings and interventions are described below. Procedure Difficulty: easy Findings: Terminal Ileum-normal Cecum:normal Ascending Colon: x 2 sessile polyps 8-10 mm lifted with eleview and removed with cold snare Transverse Colon -normal Descending Colon: x1 sessile polyp removed with cold snare 10-11 mm, and one sessile polyp 5-6 mm removed with cold forceps Sigmoid Colon: normal Rectum: Retroflexion with small internal hemorrhoids seen, grade I Anorectum - normal Intervention: cold snare with eleview for EMR, cold snare, cold forceps Colon preparation: [place] Bowel Preparation Scale Right colon; 2 Transverse colon: 2 Left colon; 1-2 (0 = Unprepared colon segment with mucosa not seen due to solid stool that cannot be cleared. 1 = Portion of mucosa of the colon segment seen, but other areas of the colon segment not well seen due to staining, residual stool and/or opaque liquid. 2 = Minor amount of residual staining, small fragments of stool and/or opaque liquid, but mucosa of colon segment seen well. 3 = Entire mucosa of colon segment seen well with no residual staining, small fragments of stool or opaque liquid) Impression and Post Procedure Diagnosis: colon polyps x 4 internal hemorrhoids Plan: High fiber diet leaflet Avoid straining at stool, epsom salts and sitz bath, anusol supps or cream Repeat Colonoscopy in 1-2 years due to areas of fair prep on left or earlier if clinically indicated Above findings were reviewed with the patient and relevant handouts were provided if indicated.
[2025-03-22 09:15] VITALS: BP 97/54; PULSE 61; RESP 16; TEMP 36.8; O2SAT 96
[2025-03-22 09:20] VITALS: BP 109/62; PULSE 60; RESP 16; O2SAT 97
[2025-03-22 09:35] VITALS: BP 109/70; PULSE 59; RESP 16; TEMP 36.8; O2SAT 96
== END 2025-03-22 09:58 | disposition home or self-care (01) ==
PROVIDERS: PCP Physician Assistant; Visit Provider Internal Medicine Gastroenterology
PROC: 0DJD8ZZ Inspection of Lower Intestinal Tract, Via Natural or Artificial Opening Endoscopic (ICD-10-PCS; CPT 45378; principal; 2025-03-22 09:20)
DX: Z12.11 Encounter for screening for malignant neoplasm of colon (principal); K64.0 First degree hemorrhoids; D12.2 Benign neoplasm of ascending colon; D12.4 Benign neoplasm of descending colon
CPT/HCPCS: 45380; 45385; 45381; 88305; J2704

== ENCOUNTER → 2025-03-22 07:48 | Outpatient (BNV) | payer OTHER, MEDICAID, SELFPAY | PROVIDERS: PCP Physician Assistant; Visit Provider Internal Medicine Gastroenterology | DX: Z12.11 Encounter for screening for malignant neoplasm of colon (principal); K63.5 Polyp of colon; K64.0 First degree hemorrhoids; Z91.199 Patient's noncompliance with other medical treatment and regimen due to unspecified reason | CPT/HCPCS: 45385 ==

== ENCOUNTER 2025-04-26 08:21 | Outpatient (REF) | payer MEDICAID, SELFPAY ==
--- NOTE | ~2025-04-26 | XR_ITS ---
EXAMINATION: XR SHOULDER 2 OR MORE VIEWS RIGHT HISTORY: M25.511 - Pain in right shoulder COMPARISON: Comparison is made with the prior examination dated 06/11/2020. FINDINGS: Two views of the right shoulder are submitted. Osseous mineralization is normal. There is no fracture or dislocation. There is severe osteoarthritis of the glenohumeral articulation with joint space narrowing and osteophyte formation. Findings have progressed since the prior study. There is mild narrowing of the AC joint. The soft tissues are unremarkable. XR/XR shoulder RT min 2V IMPRESSION: Severe osteoarthritis of the glenohumeral joint. Electronically signed by: Devin Benedict MD 04/26/2025 01:28 PM EST
--- OUTSIDE RECORDS SUMMARY | 2025-04-28 08:23 | XMS_ITS | Clinical Summary ---
Author Organization [employer] Address [address] [facility] 7 [place] [address] Care Team Providers Care Vice President Lending Name Role Phone Unavailable Primary Care Provider [...] PM EDT) Chol/HDLC Ratio 2.6 <5.0 (calc) [facility] Cholesterol, Total 180 <200 mg/dL [facility] HDL Cholesterol 69 > OR = 40 mg/dL [facility] LDL Cholesterol 94 mg/dL (calc) [facility] Comment: Reference range: [...] LDL-C. Neo SS et al. YOKO. 2013;310(19): 5526-3982 (http://education.[employer].AssayMetrics/faq/JXZ333) Non-HDL Cholesterol 111 <130 mg/dL (calc) [facility] Comment: For patients with diabetes plus 1 major ASCVD risk factor, treating to a non-HDL-C goal of <100 mg/dL (LDL-C of <70 mg/dL) is considered a therapeutic option. Triglycerides 79 <150 mg/dL [facility] 11/20/2021 4:38 PM EDT us Yas Woodard NP LAB BLOOD ORDERABLES Final Resu lt [facility] [address] from Last 3 Months or Most Recently Relevant to Health Maintenance Insurance [facility] FULL
--- OUTSIDE RECORDS SUMMARY | 2025-04-28 08:23 | XMS_ITS | Encounter Summary ---
Author Organization [employer] Address [address] [place] [address] Care Team Providers Care Invas Tech Name Role Phone Vita Winn MD Primary Care Pro vider Reason for Visit * Reason Comments Med Refill Encounter Details Date Type Department Care Team ([facility] st Contact Info) Description 02/11/2023 Refill [facility] MEDICINE [address] [place] [address] Louann Toussaint FNP [address] [place], [place] [phone] Social History Tobacco Use Types Packs/Day Years [...] on filedocumented in this encounter Care Teams Invas Tech Relationship Specialty Start Date End Date Vita Winn MD [address] [place] [address] PCP - General Internal Medicine 12/15/22 08/31/24 documented as of this encounter
--- OUTSIDE RECORDS SUMMARY | 2025-04-28 08:23 | XMS_ITS | Encounter Summary ---
Author Organization [employer] Address [address] [place] [address] Care Team Providers Care Polisher Apprentice Name Role Phone Vita Winn MD Primary Care Pro vider Reason for Visit * Reason Comments Med Refill Encounter Details Date Type Department Care Team ([facility] st Contact Info) Description 02/08/2023 Refill [facility] CHC MED & PEDS [address] [place], [place] [phone] Louann Toussaint FNP [address] [place] [address] Social History Tobacco Use Types Packs/Day Years [...] on filedocumented in this encounter Care Teams Polisher Apprentice Relationship Specialty Start Date End Date Vita Winn MD [address] [place] [address] PCP - General Internal Medicine 12/15/22 08/31/24 documented as of this encounter
--- OUTSIDE RECORDS SUMMARY | 2025-04-28 08:23 | XMS_ITS | Clinical Summary ---
Author Organization [facility] ity Address [address] [place] [address] Care Team Providers Care Upper And Bottom Lacer Hand Name Role Phone Jaylan Lo MD Primary Care Provider [phone] Allergies Active Allergy Reactions Criticality Noted Date [...] Results * Annual BMP Blood Test (04/23/2016) [facility] Annual BMP Blood Test abstracted Result [facility] Provider HEALTH MAINTENANCE Final Result * (ABNORMAL) Lipid panel (04/23/2016) [facility] LDL/HDL Ratio 3 0 - 4 Triglycerides 102 0 - 150 mg/dL Cholesterol 190 0 - 200 mg/dL HDL 58 >=40 mg/dL LDL Cholesterol 112(A) 0 - 100 mg/dL Blood Venous blood specimen / Unknown [facility] Provider LAB BLOOD ORDERABLES Jada l Result * Hepatitis C Screening (06/25/2013) [facility] Hepatitis C Screening abstracted [facility] Provider HEALTH MAINTENANCE Final Result * Colonoscopy (10/02/2008) [facility] Colonoscopy abstracted, no interpretation Anatomical Region Laterality Modality Other [facility] Provider HEALTH MAINTENANCE Final Result from Last 3 Months or Most Recently Relevant to Health Maintenance Care Teams Upper And Bottom Lacer Hand Relationship Specialty Start Date End Date Jaylan Lo MD PCP - General Internal Medicine 11/17/14
== END 2025-04-26 08:22 | disposition home or self-care (01) ==
LOC: HO.HOSX 08:21
PROVIDERS: Visit Provider Orthopaedic Surgery
DX: G89.29 Other chronic pain (principal); M25.311 Other instability, right shoulder
CPT/HCPCS: 73030

== ENCOUNTER 2025-04-26 13:07 | Outpatient (AMB) | payer MEDICAID, SELFPAY ==
--- OUTSIDE RECORDS SUMMARY | 2025-04-26 13:10 | XMS_ITS | Clinical Summary ---
Author Organization [employer] Address [address] [facility] 7 [place] [address] Care Team Providers Care Floor Representative Name Role Phone Unavailable Primary Care Provider [...] PM EDT) Chol/HDLC Ratio 2.6 <5.0 (calc) [facility] Cholesterol, Total 180 <200 mg/dL [facility] HDL Cholesterol 69 > OR = 40 mg/dL [facility] LDL Cholesterol 94 mg/dL (calc) [facility] Comment: Reference range: <100 Desirable range <100 mg/dL for primary prevention; <70 mg/dL for patients with CHD or diabetic patients with > or = 2 CHD risk factors. LDL-C is now calculated using the Neo-Hedrick calculation, which is a validated novel method providing better accuracy than the Friedewald equation in the estimation of LDL-C. Neo SS et al. YOKO. 2013;310(19): 0859-2440 (http://education.[employer].E-Blink/faq/VCC901) Non-HDL Cholesterol 111 <130 mg/dL (calc) [facility] Comment: For patients with diabetes plus 1 major ASCVD risk factor, treating to a non-HDL-C goal of <100 mg/dL (LDL-C of <70 mg/dL) is considered a therapeutic option. Triglycerides 79 <150 mg/dL [facility] 11/20/2021 4:38 PM EDT us Yas Woodard NP LAB BLOOD ORDERABLES Final Resu lt [facility] [address] from Last 3 Months or Most Recently Relevant to Health Maintenance Insurance [facility] FULL
--- OUTSIDE RECORDS SUMMARY | 2025-04-26 13:10 | XMS_ITS | Clinical Summary ---
Author Organization [facility] ity Address [address] [place] [address] Care Team Providers Care Precinct I Police Sergeant Name Role Phone Jaylan Lo MD Primary Care Provider [phone] Allergies Active Allergy Reactions Criticality Noted Date [...] TONSILLECTOMY PROCEDURE: HISTORICAL TONSILLECTOMY COLONOSCOPY 10/02/08 PROCEDURE: MN COLONOSCOPY STOMA DX INCLUDING COLLJ SPEC SPX; [...] on file Sexual Orientation Not on file Plan of Treatment Health Maintenance Due Date [...] Depression Screening 05/04/2024 COVID-19 Vaccine ( - 2024-2 6 season) 2025 Influenza Vaccine (#1) 2025 RSV [...] Results * Annual BMP Blood Test (04/23/2016) [facility] Annual BMP Blood Test abstracted Result [facility] Provider HEALTH MAINTENANCE Final Result * (ABNORMAL) Lipid panel (04/23/2016) [facility] LDL/HDL Ratio 3 0 - 4 Triglycerides 102 0 - 150 mg/dL Cholesterol 190 0 - 200 mg/dL HDL 58 >=40 mg/dL LDL Cholesterol 112(A) 0 - 100 mg/dL Blood Venous blood specimen / Unknown [facility] Provider LAB BLOOD ORDERABLES Jada l Result * Hepatitis C Screening (06/25/2013) [facility] Hepatitis C Screening abstracted [facility] Provider HEALTH MAINTENANCE Final Result * Colonoscopy (10/02/2008) [facility] Colonoscopy abstracted, no interpretation Anatomical Region Laterality Modality Other [facility] Provider HEALTH MAINTENANCE Final Result from Last 3 Months or Most Recently Relevant to Health Maintenance Care Teams Precinct I Police Sergeant Relationship Specialty Start Date End Date Jaylan Lo MD PCP - General Internal Medicine 11/17/14
--- OUTSIDE RECORDS SUMMARY | 2025-04-26 13:10 | XMS_ITS | Encounter Summary ---
Author Organization [employer] Address [address] [place] [address] Care Team Providers Care Commutator V Ring Assembler Name Role Phone Vita Winn MD Primary Care Pro vider Reason for Visit * Reason Comments Med Refill Encounter Details Date Type Department Care Team ([facility] st Contact Info) Description 02/08/2023 Refill [facility] MED & PEDS [address] [place], [place] [phone] Louann Toussaint FNP [address] [place] [address] Social History Tobacco Use Types Packs/Day Years [...] on filedocumented in this encounter Care Teams Commutator V Ring Assembler Relationship Specialty Start Date End Date Vita Winn MD [address] [place] [address] PCP - General Internal Medicine 12/15/22 08/31/24 documented as of this encounter
--- OUTSIDE RECORDS SUMMARY | 2025-04-26 13:10 | XMS_ITS | Encounter Summary ---
Author Organization [employer] Address [address] [place] [address] Care Team Providers Care Shuttlecock Assembler Name Role Phone Vita Winn MD Primary Care Pro vider Reason for Visit * Reason Comments Med Refill Encounter Details Date Type Department Care Team ([facility] st Contact Info) Description 02/11/2023 Refill [facility] MEDICINE [address] [place] [address] Louann Toussaint FNP [address] [place], [place] [id number] Social History Tobacco Use Types Packs/Day Years [...] on filedocumented in this encounter Care Teams Shuttlecock Assembler Relationship Specialty Start Date End Date Vita Winn MD [address] [place] [address] PCP - General Internal Medicine 12/15/22 08/31/24 documented as of this encounter
--- NOTE | 2025-04-26 13:20 | A.OFFVIS_ITS ---
Vital Signs 04/26/25 13:24 Height 5 ft 7 in Weight 160 lb BMI 25.1 Intake Visit Reasons: Right shoulder pain and weakness Intake Note: Mikey is a 67 year old right hand dominant male who presents with complaints of progressively worsening right shoulder pain and weakness. The patient states that his symptoms have gotten worse over the last few years. He did fall onto his right shoulder approximately 4 years ago. Since that time his symptoms have gotten worse. He has failed the last 6 weeks of conservative treatment which has included Tylenol, anti-inflammatory medicines, physical therapy exercises and a home exercise program. At this point the patient's right shoulder pain and weakness or interfering with his activities of daily living and his ability to sleep well through the night. The patient reports difficulty lifting his right hand above shoulder height. Allergies Penicillins Allergy (Severe, Verified 03/20/25 15:23) Hives Medication List - Last Reconciled 04/26/25 by Betito Ponce MD amlodipine 2.5 mg PO DAILY 90 days aspirin (Adult Aspirin Regimen) 81 mg PO DAILY 90 days atorvastatin 80 mg PO DAILY 90 days bupropion HCl XL 300 mg PO DAILY 90 days citalopram 40 mg PO DAILY 90 days cyclobenzaprine 10 mg PO TID PRN diclofenac sodium 75 mg PO BID PRN 10 days finasteride 5 mg PO DAILY folic acid 1 mg PO QAM 90 days lisinopril 10 mg PO DAILY 90 days sodium,potassium,mag sulfates 17.5-3.13-1.6 gram (Suprep Bowel Prep Kit) 480 mL orally; FOR COLONOSCOPY PREP tamsulosin 0.4 mg PO DAILY 90 days [facility] Medical History (Updated 04/26/25 @ 13:51 by Betito Ponce MD) SANGITA (generalized anxiety disorder) Alcohol use disorder CVA (cerebral vascular accident) BPH (benign prostatic hyperplasia) Right SNHL MDD (major depressive disorder), recurrent episode, moderate HTN (hypertension) Muscle spasm Surgical History History of tonsillectomy History of testicular surgery H/O colonoscopy Family History Family/Other Cancer Mother Stroke Diabetes Social History Housing: House Alcohol intake: current Alcohol intake frequency: 3 or more drinks per day Alcohol type: beer Patient Tobacco Use Status: Former Tobacco user Tobacco use type: Cigarette e-Cigarette/Vaping Use: Never Used Second Hand Smoke Exposure: Yes Substance Use Type: Marijuana service: No Current occupational status: retired and disabled 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 Pt saw hearing evaluation already. ) Vision needs: No Physical Exam Vital Signs: BMI result Body Mass Index 25.1 Extrem Other: Right shoulder examination shows decreased range of motion when compared to his left shoulder, 4/5 strength with supraspinatus testing, positive impingement signs, tenderness over his acromioclavicular joint, no instability Results Reviewed Results Reviewed: X-rays of the patient's right shoulder taken previously show severe acromioclavicular joint narrowing, a type 2 acromion, mild to moderate glenohumeral joint degenerative changes, no acute bony abnormalities Assessment & Plan Assessment & Plan (1) Rotator cuff insufficiency of right shoulder: Code(s): M25.311 - Other instability, right shoulder Category: Medical Plan Mr. Terry presents with progressively worsening right shoulder pain and weakness due to impingement syndrome and possible rotator cuff tearing. Thus, I will send the patient for an MRI of his right shoulder for further evaluation. I will see him back once the MRI is completed to discuss the findings and treatment options. Feel free to call me at any time should questions regarding his orthopedic management arise. I spent 22 minutes in reviewing the patient's records and imaging studies, seeing the patient and documenting in the medical record. Orders: Orders MR shoulder RT wo con Today M25.311 - Other instability, right shoulder XR shoulder RT min 2V 04/26/25 G89.29 - Other chronic pain, M25.511 - Pain in right shoulder Coding Level of Care Code Est Pt Level 3 (55140) Add On Problem Visit Only Diagnoses Rotator cuff insufficiency of right shoulder M25.311
[2025-04-26 13:24] VITALS: BMI 25.1
== END 2025-04-26 13:50 | disposition home or self-care (01) ==
LOC: HO.HOS 13:08
PROVIDERS: PCP Physician Assistant; Visit Provider Orthopaedic Surgery
DX: M25.311 Other instability, right shoulder (principal)
CPT/HCPCS: 99213

== ENCOUNTER → 2025-04-26 13:09 | Outpatient (BNV) | payer MEDICAID, SELFPAY | PROVIDERS: Visit Provider Radiology Diagnostic Radiology | DX: M25.511 Pain in right shoulder (principal) | CPT/HCPCS: 73030 ==